=== PATIENT | female | born 1975 | race Caucasian/White ===

== ENCOUNTER 2020-03-07 08:57 | Outpatient (CLI) | payer OTHER, SELFPAY ==
--- NOTE | 2020-03-07 08:59 | ECG_ITS ---
Measurements Intervals [place] Rate: 80 P: 37 AL: 149 QRS: -1 QRSD: 85 T: 22 QT: 356 QTc: 411 Interpretive Statements SINUS RHYTHM DELAYED PRECORDIAL R/S TRANSITION BORDERLINE ECG Electronically Signed On 03-07-2020 9:35:12 CDT by Billy Tesfaye D.O.
[2020-03-07 09:32] LABS: Basophils Percent Auto 0.6 % (0.2-1.2); Eosinophils Absolute Auto 0.2 K/mm3 (0-0.3); Eosinophils Percent Auto 2.4 % (0-4.4); Hematocrit 41.4 % (37.0-47.0); Immature Granulocyte Absolute 0.02 K/mm3 (0.00-0.031); Immature Granulocyte Percent A 0.3 % (0-0.5); Lymphocytes Absolute Auto 1.79 K/mm3 (0.9-3.2); Lymphocytes Percent Auto 28.8 % (18.3-44.2); Mean Corpuscular HGB Conc 33.8 g/dl (32-36); Mean Corpuscular Hemoglobin 30.8 pg (26-34); Mean Platelet Volume 10.1 fl (7.4-10.4); Monocytes Absolute Auto 0.4 K/mm3 (0.1-0.6); Monocytes Percent Auto 7.1 % (2.6-8.5); Neutrophils Absolute Auto 3.8 K/mm3 (1.3-6.7); Neutrophils Percent Auto 60.8 % (45.5-73.1); Platelet Count Result 310 k/mm3 (150-375); Red Blood Count 4.55 M/mm3 (4.2-5.4); Red Cell Distribution Width 12.5 % (11.5-14.5); White Blood Count 6.2 K/mm3 (4.5-10.0)
[2020-03-07 09:44] LABS: Anion Gap 6 mmol/L (8-16); Blood Urea Nitrogen 12 mg/dL (7-17); Calcium 9.1 mg/dL (8.4-10.2); Carbon Dioxide 30 mmol/L (22-30); Chloride 103 mmol/L (98-107); Estimated Glomerular Filt Rate > 60; Glucose 148 mg/dL (65-105); Potassium 3.8 mmol/L (3.4-5.0); Sodium 139 mmol/L (137-145)
== END 2020-03-07 08:58 | disposition home or self-care (01) ==
PROVIDERS: Anesthesiology; PCP Family Medicine; Visit Provider Obstetrics & Gynecology
DX: R10.2 Pelvic and perineal pain (principal); I10 Essential (primary) hypertension; Z79.899 Other long term (current) drug therapy; R94.31 Abnormal electrocardiogram [ECG] [EKG]
CPT/HCPCS: 36415; 80048; 85025; 86850; 86900; 86901; 93005

== ENCOUNTER 2020-03-09 03:23 | Outpatient (CLI) | payer OTHER, SELFPAY ==
[2020-03-09 19:05] LABS: SARS-CoV-2 RNA PCR Negative
== END 2020-03-09 03:24 | disposition home or self-care (01) ==
LOC: ANHCOVIDDT 03:24
PROVIDERS: PCP Family Medicine; Visit Provider Obstetrics & Gynecology
DX: Z01.812 Encounter for preprocedural laboratory examination (principal); Z20.828 Contact with and (suspected) exposure to other viral communicable diseases
CPT/HCPCS: 87635; C9803; U0003

== ENCOUNTER 2020-03-11 00:08 | Day surgery (SDC) | payer OTHER, SELFPAY ==
[2020-02-26 15:53] VITALS: BMI 41.5
--- NOTE | 2020-03-09 07:43 | PM.IMHP ---
H&P: HPI History of Present Illness Date/Time: 03/09/20 07:43 Chief complaint: Pelvic Pain/ Enlarged Uterus Narrative: Eliza Amador is a 44 year old female who was admitted for robotic total vaginal hysterectomy and bilateral salpingectomies. She has a markedly enlarged uterus confirmed by ultrasound. She has pain discomfort and dyspareunia. Risks and benefits of this procedure reviewed including but not exclusive , aspiration pneumonia, bleeding, transfusion, perforation injury to bowel, bladder, ureters, or other internal organs with need for laparotomy she was given the handout from [facility] entitled hysterectomy and instructed to watch a div in she procedure. She had all questions answered. She asked to proceed Review of Systems Review of Systems: All systems reviewed & are unremarkable except as noted in HPI and below PMFSH Family History Family History Father Hypertension Grandparent Cerebrovascular accident Family history of coronary artery disease Diabetes mellitus Social History Social History Smoking status: Never smoker Alcohol intake: current Drinks per week: 4 Meds Home Medications and Allergies Home Medications Medication Instructions Recorded Confirmed Type buspirone 5 mg PO TID 02/26/20 02/26/20 History cetirizine [Zyrtec] 10 mg PO DAILY 02/26/20 02/26/20 History ibuprofen 600 mg PO Q6H PRN 02/26/20 02/26/20 History lisinopril 20 mg PO QPM 02/26/20 02/26/20 History spironolactone 100 mg PO DAILY 02/26/20 02/26/20 History Allergies Allergy/AdvReac Type Severity Reaction Status Date / Time No Known Allergies Allergy Verified 02/26/20 15:54 Exam Const: General: no acute distress Eyes: General: appearance normal, both eyes and all related structures Neck: Neck: supple and no JVD Thyroid: thyroid normal Resp: Effort & Inspection: normal respiratory effort Auscultation: clear to auscultation bilaterally Cardio: Rate: regular rate Rhythm: regular rhythm GI: Inspection: non-distended GI Palp: Yes Soft to palpation, No Tenderness to palpation present (GI) and No Guarding due to palpation present (GI) Auscultation: normal bowel sounds : General: Yes bladder normal to inspection External Female Exam: normal external appearance Speculum Exam - Vagina: normal vaginal discharge Speculum Exam - Cervix: Cervical os closed Bimanual exam- vagina & uterus: enlarged Bimanual Exam- Adnexa, other: no masses Skin: General skin exam: no rashes or lesions noted Extrem: General: normal to inspection and no edema Psych: Mental Status: mental status grossly normal Affect: normal affect Assessment and Plan Additional Plan impression: Enlarged uterus /pelvic pain / dyspareunia Plan: Robotic total vaginal hysterectomy and bilateral salpingectomies
[2020-03-11] VITALS (16 sets, daily range): BP systolic 112–147; BP diastolic 60–85; PULSE 72–94; RESP 12–18; TEMP 35.9–37; O2SAT 94–100
--- NOTE | 2020-03-11 06:36 | WPDHPUPDATE1 ---
History and Physical Update Update Date/Time: 03/11/20 06:36 History and Physical has been reviewed, including an updated exam of the patient. There are NO changes in the patient's condition. Risks, benefits, and alternatives have been discussed and questions answered. Patient agrees to proceed with procedure.
--- NOTE | 2020-03-11 06:42 | WPDANESEPPF ---
Anes - Initial Pre Proc Eval Procedure: Operation Date: 03/11/20 07:30 Proposed Procedures p Robotic Assisted Total Vaginal Hysterectomy, Bilateral Salpingectomy - Rj Rausch MD Date/Time: 03/11/20 06:42 Surgeon: Rj Rausch MD Pre Op Diagnosis: Pelvic Pain/ Enlarged Uterus Patient Data Age: 44 Gender: F Height: 5 ft 5 in Weight: 113.4 kg Allergies Allergy/AdvReac Type Severity Reaction Status Date / Time No Known Allergies Allergy Verified 02/26/20 15:54 Home Medications Medication Instructions Recorded Confirmed Type buspirone 5 mg PO TID 02/26/20 02/26/20 History cetirizine [Zyrtec] 10 mg PO DAILY 02/26/20 02/26/20 History ibuprofen 600 mg PO Q6H PRN 02/26/20 02/26/20 History lisinopril 20 mg PO QPM 02/26/20 02/26/20 History spironolactone 100 mg PO DAILY 02/26/20 02/26/20 History hydrocodone-acetaminophen 1 tablet PO Q6H PRN #30 tablet 03/11/20 Rx Patient hx anesthesia problems: none Family hx anesthesia problems: none PMFSH Past Medical History Medical History (Updated 03/11/20 @ 06:42 by Rj Rivas MD) Anxiety HTN (hypertension) Morbid obesity Surgical History Surgical History (Updated 03/11/20 @ 06:43 by Rj Rivas MD) H/O laparoscopy Family History Family History Father Hypertension Grandparent Cerebrovascular accident Family history of coronary artery disease Diabetes mellitus Social History Social History Smoking status: Never smoker Alcohol intake: current Drinks per week: 4 Anes - Eval Final PreProcedure Day of Procedure 03/11/20 06:42 Patient weight: morbidly obese Heart: regular rate and rhythm Lungs: clear to auscultation Airway: Mallampati scale class II Neurological: alert and oriented Last oral intake: >/= 8 hours ASA classification: III Emergent: no Anesthetic plan: proceed Anesthesia type and monitoring: general ETT and standard monitoring Informed Consent: The patient's anesthetic plan and its attendant risks and benefits were discussed with the patient/family/POA. Questions were solicited and answers provided to the satisfaction of the patient/family/POA.
[2020-03-11] MEDS: LACTATED RINGERS 1,000 ML 30 ML IV CONT ×2 (07:02→08:55)
[2020-03-11] MEDS: KETOROLAC 15 MG/ML VIAL (*BKC) IV PUSH (07:03)
[2020-03-11] MEDS: ACETAMINOPHEN 500 MG TABLET 1000 MG PO (07:03)
--- NOTE | 2020-03-11 08:51 | PM.PROC ---
Procedure Note - Detailed Date of procedure: 03/11/20 Pre-op diagnosis: Pelvic Pain/ Enlarged Uterus Surgeon: Rj Rausch MD Postop diagnosis: Pelvic pain /enlarged uterus Procedure: Robotic total vaginal hysterectomy and left salpingectomy Anesthesia: General endotracheal EBL: 100cc Complications: None Findings: Absent right ovary and tube. Mildly enlarged uterus. Normal-appearing left ovary. Left tube status post tubal ligation. Adhesions from the colon to the left lateral sidewall Description of procedure: Patient was prepped and draped in the normal sterile fashion placed in the dorsal lithotomy position. Under excellent general endotracheal anesthesia weighted speculum was placed in the posterior fornix vagina. Anterior lip of the uterus was sent grasped with a single-tooth tenaculum and the uterus sounded to 8cm. Serial dilatation with fragmented dilators performed followed by passage of the 6. DARWIN and the 3. Cold cup. Next the 16 [place] catheter was placed in the bladder drained of clear urine. The weighted speculum and other instruments removed. The gloves were changed. A supraumbilical incision made the Veress needle passed in the abdomen. The abdomen was filled with CO2 gas [id number]. The 8mm trocar was advanced in the abdomen. The downside was visualized and no injury seen. The patient placed in Trendelenburg and right and left lateral quadrant incisions made. The 8mm trocars were advanced under direct visualization assuring no injury. A right upper quadrant incision made in the 10mm trocar advanced under direct visualization assuring injury. The robot was docked Attention was turned to the investment counselor. The left lateral sidewall was stuck with adhesions from the omentum and the colon to the left lateral sidewall. These were sharply dissected using occasional cautery for control of blood loss. The left fallopian tube was then teased away from the left ovary and passed off with through the right upper quadrant incision. The ovary appeared within normal limits with a small cyst which was drained of clear fluid. The left utero-ovarian ligament was grasped, burned, cut and brought to the round ligament. The round ligament on the left was clamped, burned, cut. Anteriorly a bladder flap was formed by sharply dissected caudally from the uterus to the opposite round ligament which was clamped, burned, cut. Next the utero-ovarian ligament on the right was clamped, burned, cut and brought to the level of previous cut round ligament. The left cardinal and broad ligaments were skeletonized these were serially clamped, burned, cut and brought down the lateral edge of the uterus until the blood vessels could be seen on the left these were large and tortuous in each was individually clamped, burned, cut. In like fashion the cardinal and broad ligaments on the right were serially skeletonized. These were clamped, burned, cut and brought to the level of the uterine vessels. These were individually clamped, burned, cut. Blanching the uterus was seen and control of blood loss was present. A colpotomy incision was made in the cervix uterus and lap last portion of the fallopian tube on the left was removed. Blood loss was estimated at [id number]. The vagina was closed with continuous running 0V lock from lateral edge to lateral edge and back to the midline. Irrigation was undertaken until clear. Hematuria was placed over the raw surface areas to assure hemostasis. The robot was undocked. The gas removed from the abdomen. The trocars removed from the abdomen. The incisions closed with 4 O Monocryl and glue. The patient was awakened. She went to recovery in satisfactory condition. All sponge, needle, instrument counts were correct. There were no immediate complications
[2020-03-11] MEDS: fentaNYL CITRATE INJ (*CRX) 100 MCG/2 ML VIAL 25 MCG IV PUSH ×8 (09:24→09:44)
[2020-03-11] MEDS: DEXTROSE 5%/LACTATED RINGERS 1,000 ML 125 ML IV CONT (10:13)
--- NOTE | 2020-03-11 10:13 | PC.NURSE ---
PT arrived on unit via bed unaccompanied . PT alert and awake and oriented to room 289 and surrounding area. PT introductions made and plan of care discussed per post op house player surgery, pain management, daily care activities. PT verbalized understanding of such instructions.
[2020-03-11] MEDS: HYDROcodone/acetaminophen (*CRX) 10-325 MG TABLET 1 TAB PO ×5 (11:07→23:06)
[2020-03-11] MEDS: KETOROLAC 30 MG/ML VIAL (*BKC) IV PUSH (11:09)
[2020-03-11] MEDS: SIMETHICONE 80 MG TAB.CHEW PO ×4 (11:11→20:01)
[2020-03-11] MEDS: IBUPROFEN 600 MG TABLET PO ×2 (17:16→23:06)
[2020-03-11] MEDS: DOCUSATE SODIUM 100 MG CAPSULE PO (17:16)
[2020-03-12] MEDS: HYDROcodone/acetaminophen (*CRX) 10-325 MG TABLET 1 TAB PO ×2 (05:33→10:17)
[2020-03-12] MEDS: IBUPROFEN 600 MG TABLET PO (05:34)
[2020-03-12 06:17] LABS: Basophils Percent Auto 0.2 % (0.2-1.2); Eosinophils Absolute Auto 0.1 K/mm3 (0-0.3); Eosinophils Percent Auto 0.4 % (0-4.4); Hematocrit 39.3 % (37.0-47.0); Immature Granulocyte Absolute 0.07 K/mm3 (0.00-0.031); Immature Granulocyte Percent A 0.6 % (0-0.5); Lymphocytes Percent Auto 16.4 % (18.3-44.2); Mean Corpuscular HGB Conc 33.1 g/dl (32-36); Mean Corpuscular Volume 93.8 fl (80-100); Monocytes Absolute Auto 0.8 K/mm3 (0.1-0.6); Monocytes Percent Auto 6.5 % (2.6-8.5); Neutrophils Absolute Auto 8.8 K/mm3 (1.3-6.7); Neutrophils Percent Auto 75.9 % (45.5-73.1); Platelet Count Result 320 k/mm3 (150-375); Red Blood Count 4.19 M/mm3 (4.2-5.4); Red Cell Distribution Width 12.6 % (11.5-14.5); White Blood Count 11.6 K/mm3 (4.5-10.0)
--- NOTE | 2020-03-12 06:34 | P.DS_ITS ---
DS: Admitting Diagnosis Admitting Diagnosis Admitting Diagnosis: Pelvic Pain/ Enlarged Uterus DS: Summary Hospital Course Reason for hospitalization: The patient was admitted for robotic hysterectomy and bilateral salpingectomy. The right ovary and tube were absent so the left tube was removed. Hospital course was unremarkable. She remained afebrile. She was, voiding the difficulty passing gas, eating and ambulating without difficulty. Her condition upon discharge was stable Time Spent with Patient Time attestation: Total time spent providing and/or coordinating discharge services: Exam Const: General: no acute distress Eyes: General: appearance normal, both eyes and all related structures Neck: Neck: supple and no JVD Thyroid: thyroid normal Resp: Effort & Inspection: normal respiratory effort Auscultation: clear to auscultation bilaterally Cardio: Rate: regular rate Rhythm: regular rhythm GI: Inspection: non-distended GI Palp: Yes Soft to palpation, No Tenderness to palpation present (GI) and No Guarding due to palpation present (GI) Auscultation: normal bowel sounds : General: Yes bladder normal to palpation External Female Exam: normal external appearance Speculum Exam - Vagina: normal vaginal discharge and No vaginal bleeding Speculum Exam - Cervix: nontender Bimanual exam- vagina & uterus: bladder normal to palpation and No Cervical tenderness present OB/external & speculum: No vaginal bleeding Skin: General skin exam: no rashes or lesions noted Extrem: General: normal to inspection and no edema Psych: Mental Status: mental status grossly normal Affect: normal affect DS: Data Data Completed and Pending Pending studies at discharge: Pending at discharge 03/11/20 08:10 Surgical [PTH] Routine Labs on day of discharge: Labs from last 24 hours 03/12/20 05:42 WBC 11.6 H RBC 4.19 L Hgb 13.0 Hct 39.3 MCV 93.8 MCH 31.0 MCHC 33.1 RDW 12.6 Plt Count 320 MPV 10.0 Immature Gran % (Auto) 0.6 H Neut % (Auto) 75.9 H Lymph % (Auto) 16.4 L [place] % (Auto) 6.5 Eos % (Auto) 0.4 Baso % (Auto) 0.2 Lymph # (Auto) 1.90 [place] # (Auto) 0.8 H Eos # (Auto) 0.1 Baso # (Auto) 0.0 Abs Immat Gran (auto) 0.07 H Absolute Neuts (auto) 8.8 H Absolute Nucleated RBC 0.0 Nucleated RBC % 0.0 Discharge Plan Discharge Patient Disposition: Home, Self-Care Stand Alone Forms: General Discharge Instructions Follow-up/Referrals: Rj Rausch MD [Physician] - Discharge Medications: New hydrocodone-acetaminophen 5-300 mg tablet 1 tablet PO Q6H PRN (Reason: pain) Qty: 30 RF: 0 Continued buspirone 5 mg tablet 5 mg PO TID RF: 0 cetirizine [Zyrtec] 10 mg Tablet 10 mg PO DAILY RF: 0 lisinopril 20 mg tablet 20 mg PO QPM RF: 0 spironolactone 100 mg tablet 100 mg PO DAILY RF: 0 ibuprofen 600 mg Tablet 600 mg PO Q6H PRN (Reason: Pain) RF: 0
--- NOTE | 2020-03-12 08:43 | WPDANESPN ---
Anes - Prog Note Post-Op Date/Time: 03/12/20 08:43 Cardiovascular status: normal Respiratory status: normal Airway patency: baseline Mental status: baseline Post-Op hydration status: normal Vital Signs: Last Vital Signs Temp 36.7 C 03/11/20 23:05 Pulse 74 03/11/20 23:05 Resp 16 03/11/20 23:05 BP 112/64 03/11/20 23:05 Pulse Ox 100 03/11/20 23:05 Pain Score (VAS): 05/29 I/O: Intake & Output 03/11/20 03/12/20 03/12/20 23:59 07:59 15:59 Intake Total 1900 200 Output Total 1450 650 Balance 450 -450 Laboratory Tests 03/12/20 05:42 03/12/20 05:42 WBC 11.6 H RBC 4.19 L Hgb 13.0 Hct 39.3 MCV 93.8 MCH 31.0 MCHC 33.1 RDW 12.6 Plt Count 320 MPV 10.0 Immature Gran % (Auto) 0.6 H Neut % (Auto) 75.9 H Lymph % (Auto) 16.4 L [place] % (Auto) 6.5 Eos % (Auto) 0.4 Baso % (Auto) 0.2 Lymph # (Auto) 1.90 [place] # (Auto) 0.8 H Eos # (Auto) 0.1 Baso # (Auto) 0.0 Abs Immat Gran (auto) 0.07 H Absolute Neuts (auto) 8.8 H Absolute Nucleated RBC 0.0 Nucleated RBC % 0.0 Post-procedural complaints: none Patient Feedback: Patient satisfied with anesthetic care.
[2020-03-12 09:30] VITALS: BP 108/60; PULSE 78; RESP 14; TEMP 36.6; O2SAT 99
[2020-03-12] MEDS: DOCUSATE SODIUM 100 MG CAPSULE PO (10:09)
[2020-03-12] MEDS: ENOXAPARIN 40 MG/0.4 ML SYRINGE SUB-Q (10:09)
[2020-03-12] MEDS: SIMETHICONE 80 MG TAB.CHEW PO (10:09)
== END 2020-03-12 10:22 | disposition home or self-care (01) ==
LOC: ANHSURGERY 05:55 → ANHOB2 10:15
PROVIDERS: PCP Family Medicine; Visit Provider Obstetrics & Gynecology
PROC: (CPT 58552; principal; 2020-03-11 07:30)
DX: R10.2 Pelvic and perineal pain (principal); N72 Inflammatory disease of cervix uteri; N80.0 Endometriosis of uterus; I10 Essential (primary) hypertension; F41.9 Anxiety disorder, unspecified; E66.01 Morbid (severe) obesity due to excess calories; Z68.41 Body mass index [BMI] 40.0-44.9, adult
CPT/HCPCS: 58552; S2900; 36415; 85025; 88307; 99199; A9270; J0330; J1100; J1650; J1885; J2250; J2405; J2704; J3010; J7030; J7120; J7121

== ENCOUNTER 2021-08-17 11:32 | Outpatient (CLI) | payer OTHER, SELFPAY ==
[2021-08-17 12:20] LABS: Alanine Aminotransferase 109 U/L (4-35); Albumin Level 4.3 g/dL (3.5-5.1); Alkaline Phosphatase 95 U/L (38-126); Anion Gap 9 mmol/L (8-16); Aspartate Amino Transferase 68 U/L (14-36); Bilirubin,Total 0.6 mg/dL (0.2-1.3); Blood Urea Nitrogen 10 mg/dL (7-17); Calcium 8.9 mg/dL (8.4-10.2); Carbon Dioxide 26 mmol/L (22-30); Chloride 101 mmol/L (98-107); Cholesterol 209 mg/dL (0-200); Estimated Glomerular Filt Rate > 60; Glucose 165 mg/dL (65-110); HDL Direct 39 mg/dL; Sodium 136 mmol/L (137-145); Triglycerides 158 mg/dL (<150)
[2021-08-17 12:31] LABS: LDL Cholesterol Direct 133 mg/dL
[2021-08-17 12:42] LABS: Free T4 Free Thyroxine 1.19 ng/mL (0.78-2.19)
== END 2021-08-17 11:33 | disposition home or self-care (01) ==
LOC: ANHLAB 11:35
PROVIDERS: PCP Family Medicine; Visit Provider Family Medicine
DX: R63.5 Abnormal weight gain (principal)
CPT/HCPCS: 36415; 80053; 80061; 84439; 84443

== ENCOUNTER 2021-10-25 12:47 | Emergency (ER) | payer OTHER, SELFPAY ==
--- NOTE | 2021-10-25 12:52 | ED.URI ---
HPI - URI/Sore Throat General Chief Complaint: Upper Respiratory Infection Stated Complaint: sinus pain Time Seen by Provider: 10/25/21 12:52 Source: patient Mode of arrival: ambulatory Limitations: no limitations History of Present Illness HPI Narrative: Ms. Amador is a 46-year-old female patient presenting to the clinic today with complaints of sinus pressure and congestion since October 02. She reports that she went to [employer] and soon after she was there she became sick with sinus pressure and nasal drainage. She reports that she took some [id number] Sudafed and Tylenol/Motrin and her symptoms improved however now her symptoms of come back with a vengeance. She denies any fever or chills but has sinus pressure over her right maxillary sinus and around her right eye. Related Data Home Medications Medication Instructions Recorded Confirmed buspirone 5 mg tablet 5 mg PO TID 02/26/20 03/11/20 cetirizine 10 mg tablet (Zyrtec) 10 mg PO DAILY 02/26/20 03/11/20 ibuprofen 600 mg tablet 600 mg PO Q6H PRN Pain 02/26/20 03/11/20 lisinopril 20 mg tablet 20 mg PO QPM 02/26/20 03/11/20 spironolactone 100 mg tablet 100 mg PO DAILY 02/26/20 03/11/20 Allergies Allergy/AdvReac Type Severity Reaction Status Date / Time No Known Allergies Allergy Verified 03/11/20 07:19 Review of Systems Review of Systems: Pertinent positives per HPI. Patient denies any fever, chills, rash, headache, visual changes, dizziness, cough, runny nose, sore throat, shortness of breath, chest pain, palpitations, nausea, vomiting, diarrhea, constipation, abdominal pain, or any urinary issues. [facility] Past Medical History Medical History Anxiety HTN (hypertension) Morbid obesity Surgical History Surgical History H/O laparoscopy Family History Family History Father Hypertension Grandparent Cerebrovascular accident Family history of coronary artery disease Diabetes mellitus Social History Social History Smoking status: Never smoker Alcohol intake: current Drinks per week: 4 Comments At the time of my signature, I reviewed and agree with the nursing past medical, surgical, social, and family history. There is no relevant family history pertinent to the patient complaint. Exam Narrative: General: Well-developed, well nourished, in no apparent distress Head: Normocephalic, atraumatic Eyes: Pupils equally round and reactive to light bilaterally, EOM intact, sclera and conjunctive clear, no discharge, lids normal Ears: TMs intact and clear, ear canals clear, no drainage, grossly hearing normal. Nose: Nares patent, clear nasal discharge, no inflammation, tenderness over the right maxillary sinuses and right frontal sinuses Mouth: Oropharynx without lesions or masses, good dentition, MMM. Neck: Supple, trachea midline, no enlargement of anterior or posterior cervical nodes, no thyroid masses or goiter palpable. Cardio: Regular rate and rhythm, s1 and s2 normal, no murmur appreciated. Resp: Clear to auscultation bilaterally anteriorly and posteriorly, no rhonchi, rales, wheezing or rubs Course Course Emergency Course: Portions of this record may have been created with voice recognition software. Level of Care: Express Care Visit Vital Signs Vital signs: Vital signs reviewed MDM - URI/Sore Throat MDM Narrative Medical decision making narrative: At the time of visit patient is resting comfortably on the exam table. I will treat the patient with acute rhinosinusitis and give her a prescription for some Augmentin. Supportive measures were discussed with the patient she voiced understanding of discharge instructions. Differential Diagnosis Differential diagnosis: Likely upper
[2021-10-25 12:57] VITALS: BP 159/92; PULSE 95; RESP 16; TEMP 36.1; O2SAT 100
== END 2021-10-25 13:07 | disposition home or self-care (01) ==
PROVIDERS: Emergency Provider Nurse Practitioner Family; PCP Family Medicine
DX: J01.00 Acute maxillary sinusitis, unspecified (principal); F41.9 Anxiety disorder, unspecified; I10 Essential (primary) hypertension; E66.01 Morbid (severe) obesity due to excess calories; Z68.41 Body mass index [BMI] 40.0-44.9, adult
CPT/HCPCS: 99213; G0463

== ENCOUNTER 2021-10-30 13:15 | Emergency (ER) | payer OTHER, SELFPAY ==
--- NOTE | ~2021-10-30 | XR_ITS ---
XR ankle LT min 3V DATE: 10/30/2021 14:33 INDICATION: Twisting injury, lateral ankle pain TECHNIQUE: 4 views COMPARISON: None FINDINGS: Prominent posterior and plantar calcaneal enthesopathy. No fracture or dislocation of the ankle or disruption of the ankle mortise. No periosteal reaction or bone destruction. IMPRESSION: Plantar and posterior calcaneal enthesopathy Reviewed, dictated and finalized at location A.
--- NOTE | ~2021-10-30 | XR_ITS ---
XR foot LT min 3V DATE: 10/30/2021 14:33 INDICATION: Lateral foot pain after twisting injury today TECHNIQUE: 4 views COMPARISON: None FINDINGS: Prominent plantar and posterior calcaneal enthesopathy without erosive change or periostiti s. Mild osteoarthritis at the first metatarsophalangeal joint. No fracture, dislocation, periosteal reaction or bone destruction. IMPRESSION: No fracture or dislocation Prominent plantar and posterior calcaneal enthesopathy Reviewed, dictated and finalized at location A.
[2021-10-30 13:25] VITALS: BP 156/108; PULSE 100; RESP 16; TEMP 35.9; O2SAT 100
--- NOTE | 2021-10-30 14:05 | ED.LOWEXIN ---
HPI - Extremity Injury (Lower) General Chief Complaint: Extremity Injury, Lower Stated Complaint: L FOOT PAIN Time Seen by Provider: 10/30/21 14:06 History of Present Illness HPI Narrative: The patient is here with complaints of injury to the left ankle after she twisted it while walking. She states that she was wearing regular Crocs. Since then she has been bearing weight but it is painful. She localizes pain to the outside of the lateral foot and the ankle area. Denies any associated numbness or tingling. Denies any other injuries. Patient states that she has had an old injury to the right this fracture of tibia and fibula and needed open reduction andinternal fixation. Related Data Home Medications Medication Instructions Recorded Confirmed buspirone 5 mg tablet 5 mg PO TID 02/26/20 10/30/21 lisinopril 20 mg tablet 20 mg PO QPM 02/26/20 10/30/21 spironolactone 100 mg tablet 100 mg PO DAILY 02/26/20 10/30/21 phentermine 37.5 mg tablet 1 tablet DAILY 10/25/21 10/30/21 Allergies Allergy/AdvReac Type Severity Reaction Status Date / Time No Known Allergies Allergy Verified 10/30/21 13:33 Review of Systems Review of Systems: All systems reviewed & are unremarkable except as noted in HPI and below PMFSH Past Medical History Medical History (Updated 10/30/21 @ 14:55 by Tawnya Spangler MD) Anxiety Fracture of right tibia and fibula HTN (hypertension) Morbid obesity Surgical History Surgical History H/O laparoscopy Family History Family History Father Hypertension Grandparent Cerebrovascular accident Family history of coronary artery disease Diabetes mellitus Social History Social History Smoking status: Never smoker Alcohol intake: current Drinks per week: 4 Exam Const: General: healthy appearing, no acute distress and alert Nutritional Appearance: well nourished Limitations: no limitations HENMT: Head: normal to inspection Eyes: Pupils: Equal, round and reactive pupils present EOM: EOMs intact bilaterally Resp: Effort & Inspection: normal respiratory effort Auscultation: clear to auscultation bilaterally Cardio: Rate: regular rate Rhythm: regular rhythm Skin: General skin exam: normal color Rashes: no rashes Wounds: no wounds Neuro: General: patient oriented x3 and moves all extremities Speech: normal speech Gait exam (Neuro): Normal gait present (Favouring left foot ) Extrem: General: normal to inspection Other: Left Foot Appears normal in contour and shape. There is no obvious deformity. There is no external bruising or discoloration. There are no open wounds. There is tenderness at the base of the lateral malleolar area into the proximal foot. There is also tenderness at the base of the 5th metatarsal. No crepitus or swelling is noted. The range of motion at the ankle is slightly tender. The distal neurovascular status of the left foot is normal. The rest of the extremity appears to be unremarkable. Course Course Emergency Course: The ankle and foot x-ray have been reported as negative for any fracture. There is some enthesopathy noted to the calcaneal area per radiology report. The patient is aware. an ankle gel splint and Diomedes wrap will be applied. Patient does not want anything for pain medication at this time. She has no restrictions on weight-bearing however she is advised to elevate and ice the ankle today. Vital Signs Vital signs: Vital Signs Temperature 35.9 C L 10/30/21 13:25 Pulse Rate 100 10/30/21 13:25 Respiratory Rate 16 10/30/21 13:25 Blood Pressure 156/108 H 10/30/21 13:25 Pulse Oximetry 100 10/30/21 13:25 Oxygen Delivery Room Air 10/30/21 13:25 Temperature 35.9 C L 10/30/21 13:25 Pulse Rate 100 10/30/21 13:25 Respiratory Rate 16 10/30/21 13:
[2021-10-30 15:15] VITALS: BP 141/91; PULSE 91; RESP 18; O2SAT 100
== END 2021-10-30 15:15 | disposition home or self-care (01) ==
PROVIDERS: Emergency Provider Emergency Medicine; PCP Family Medicine
DX: S93.402A Sprain of unspecified ligament of left ankle, initial encounter (principal)
CPT/HCPCS: 73610; 73630; 99283; L4350

== ENCOUNTER 2022-04-04 06:00 | Day surgery (SDC) | payer OTHER, SELFPAY ==
[2022-03-01 12:21] VITALS: BMI 38.3
[2022-03-20 10:05] VITALS: BMI 36.6
[2022-04-04 06:30] VITALS: BP 138/106; PULSE 90; RESP 20; TEMP 36.3; O2SAT 100
--- NOTE | 2022-04-04 06:55 | WPDANESEPPF ---
Anes - Initial Pre Proc Eval Procedure: Operation Date: 04/04/22 07:30 Proposed Procedures p Excision Ganglion Cyst/Soft Tissue Mass 2nd Digit-Right Foot - Dahiana Swanson DPM Date/Time: 04/04/22 06:55 Surgeon: Dahiana Swanson DPM Pre Op Diagnosis: Ganglion Cyst/Soft Tissue Mass 2nd Digit RT Foot Patient Data Age: 47 Gender: F Height: 1.65 m Weight: 102.6 kg Allergies Allergy/AdvReac Type Severity Reaction Status Date / Time No Known Allergies Allergy Verified 04/04/22 06:32 Home Medications Medication Instructions Recorded Confirmed Type buspirone 5 mg tablet 5 mg PO TID 02/26/20 04/04/22 History spironolactone 100 mg tablet 100 mg PO DAILY 02/26/20 04/04/22 History phentermine 37.5 mg tablet 1 tablet DAILY 10/25/21 04/04/22 History Patient hx anesthesia problems: none Family hx anesthesia problems: none Results Review: All pre-operative results and documents have been reviewed as part of the pre-operative evaluation. [facility] Past Medical History Medical History (Updated 10/31/21 @ 00:00 by Dorys Linares) Anxiety Fracture of right tibia and fibula HTN (hypertension) Morbid obesity Surgical History Surgical History H/O laparoscopy Family History Family History Father Hypertension Grandparent Cerebrovascular accident Family history of coronary artery disease Diabetes mellitus Social History Social History Smoking status: Never smoker Second hand tobacco smoke exposure: No Alcohol intake: current Drinks per week: 4 Alcohol use details: socially Substance use: never Substance use type: does not use Living arrangements: with family Spiritual care concerns: No Anes - Eval Final PreProcedure Day of Procedure 04/04/22 06:55 Patient weight: obese Heart: regular rate and rhythm Lungs: clear to auscultation Airway: Mallampati scale class III Neurological: alert and oriented Last oral intake: >/= 8 hours ASA classification: II Emergent: no Anesthetic plan: proceed Anesthesia type and monitoring: general GIVS and standard monitoring Results Review: All pre-operative results and documents have been reviewed as part of the pre-operative evaluation. Informed Consent: The patient's anesthetic plan and its attendant risks and benefits were discussed with the patient/family/POA. Questions were solicited and answers provided to the satisfaction of the patient/family/POA.
--- NOTE | 2022-04-04 07:19 | WPDHPUPDATE1 ---
History and Physical Update Update Date/Time: 04/04/22 07:19 History and Physical has been reviewed, including an updated exam of the patient. There are NO changes in the patient's condition. Risks, benefits, and alternatives have been discussed and questions answered. Patient agrees to proceed with procedure.
--- NOTE | 2022-04-04 07:20 | PM.IMHP ---
H&P: HPI History of Present Illness Date/Time: 04/04/22 07:20 Chief Complaint: Painful soft tissue mass right 2nd digit. Patient has tried aspiration of the cyst with no improvement. Review of Systems Review of Systems: All systems reviewed & are unremarkable except as noted in HPI and below Constitutional: Constitutional: Reports as per HPI Eyes: Eyes: Reports as per HPI Cardiovascular: Cardiovascular: Reports as per HPI Respiratory: Respiratory: Reports as per HPI Gastrointestinal: Gastrointestinal: Reports as per HPI Musculoskeletal: Comments: Pain on palpation of right 2nd digit. Neurologic: Reports system reviewed and no additional complaints, except as documented [facility] Past Medical History Medical History Anxiety Fracture of right tibia and fibula HTN (hypertension) Morbid obesity Surgical History Surgical History H/O laparoscopy Family History Family History Father Hypertension Grandparent Cerebrovascular accident Family history of coronary artery disease Diabetes mellitus Social History Social History Smoking status: Never smoker Second hand tobacco smoke exposure: No Alcohol intake: current Drinks per week: 4 Alcohol use details: socially Substance use: never Substance use type: does not use Living arrangements: with family Spiritual care concerns: No Meds Home Medications and Allergies Home Medications Medication Instructions Recorded Confirmed Type buspirone 5 mg tablet 5 mg PO TID 02/26/20 04/04/22 History spironolactone 100 mg tablet 100 mg PO DAILY 02/26/20 04/04/22 History phentermine 37.5 mg tablet 1 tablet DAILY 10/25/21 04/04/22 History Allergies Allergy/AdvReac Type Severity Reaction Status Date / Time No Known Allergies Allergy Verified 04/04/22 06:32 Exam Const: General: comfortable and no acute distress HENMT: Face/Nose/Sinus: Normal nares present Mouth: Yes moist mucous membranes Eyes: General: appearance normal, both eyes and all related structures Neck: Neck: supple Resp: Effort & Inspection: normal respiratory effort Cardio: Rate: regular rate Rhythm: regular rhythm GI: GI Palp: Yes Soft to palpation Auscultation: normal bowel sounds Skin: General skin exam: normal color Lesions: lesion noted (mass present on right 2nd digit.) Neuro: General: gait normal Speech: normal speech Motor exam (neuro): 5/5 motor strength present throughout Sensory Exam: normal sensation Extrem: General: normal exam except as noted Assessment and Plan Assessment and plan (1) Mass of soft tissue of right lower extremity: Code(s): M79.89 - Other specified soft tissue disorders Status: Acute Plan 1) Soft tissue mass right 2nd digit. Plan: Discussed risks, benefits and alternate procedures. Patient would like to proceed with surgery as planned. Excision of soft tissue mass right 2nd digit.
[2022-04-04] MEDS: ceFAZolin SODIUM 2 GM/20 ML SW SYRINGE IV PUSH (07:30)
[2022-04-04] MEDS: LACTATED RINGERS 1,000 ML 30 ML IV CONT (07:35)
[2022-04-04] MEDS: LIDOCAINE HCL 1% LOCAL INJ 20 ML VIAL 5 ML INFILTRATE (07:58)
[2022-04-04 08:04] VITALS: BP 146/80; PULSE 89; RESP 16; O2SAT 100
--- NOTE | 2022-04-04 08:04 | W.PM.PROC2 ---
Procedure Note - Detailed Date of Procedure 04/04/22 Pre-op Diagnosis Ganglion Cyst/Soft Tissue Mass 2nd Digit RT Foot Post-op Diagnosis Same Procedure Performed Excision of soft tissue mass right 2nd digit. Surgeon Dahiana Swanson DPM Anesthesia MAC Indications Painful soft tissue mass that has been present for over a year. No improvement with aspiration. Findings Soft tissue mass on right 2nd digit measured approximately 1.0 x 0.4 cm. Description of Procedure Patient brought into the operating room and placed on the table in the supine position. The patient was secured to the table using a safety belt. A well padded pneumatic ankle tourniquet was placed on the patients right ankle. MAC anesthesia was achieved by the anesthesiologist. Next a timeout was performed. A local injection was performed on the right 2nd digit using 10 cc of 1:1 mix of 1% lidocaine plain and 0.5% bupivacaine plain. The foot was scrubbed, prepped and draped using aseptic technique. The foot was exsanguinated using a esmarch bandage and the tourniquet was inflated to 250 mmhg. Next attention was drawn to the right 2nd digit. The mass was present over the dorsolateral aspect of the digit at the level of the DIPJ. A 3:1 converging semi-elliptical incision was made over the soft tissue mass using a #15 blade. The mass was excised in it's entirety. The mass was sent to pathology in formalin for analysis. The area was flushed with copious amounts of normal saline. The incision was closed using layered closure with 4-0 monocryl and 4-0 prolene. The incision was dressed using xeroform, 4x4s, kerlix and [place] wrap. The tourniquet was deflated at this time. The patient was transferred to pacu with vital signs stable and intact perfusion to the digits. The patient tolerated the procedure and anesthesia well. Implants 4-0 monocryl and 4-0 prolene. Estimated Blood Loss 5 Tourniquet Time 12 Pathology Yes (soft tissue mass right foot) Complications No immediate complications Condition Stable Disposition PACU
--- NOTE | 2022-04-04 08:12 | WPDANESPN ---
Anes - Prog Note Post-Op Date/Time: 04/04/22 08:12 Cardiovascular status: normal Respiratory status: normal Airway patency: baseline Mental status: baseline Post-Op hydration status: normal Vital Signs: Last Vital Signs Temp 36.3 C L 04/04/22 06:30 Pulse 90 04/04/22 06:30 Resp 20 04/04/22 06:30 BP 138/106 H 04/04/22 06:30 Pulse Ox 100 04/04/22 06:30 O2 Del Method Room Air 04/04/22 06:30 Pain Score (VAS): 0 Post-procedural complaints: none Patient Feedback: Patient satisfied with anesthetic care. Other Findings: Patient vital signs back to baseline. Patient denies nausea and vomiting. Patient's pain under control. Patient OK for discharge.
[2022-04-04 08:24] VITALS: BP 133/87; PULSE 83; RESP 18; O2SAT 99
== END 2022-04-04 08:53 | disposition home or self-care (01) ==
PROVIDERS: PCP Family Medicine; Visit Provider Student in an Organized Health Care Education/Training Program
PROC: (CPT 28043; principal; 2022-04-04 07:30)
DX: D17.23 Benign lipomatous neoplasm of skin and subcutaneous tissue of right leg (principal)
CPT/HCPCS: 28043

== ENCOUNTER 2022-04-04 08:00 | Outpatient (NON) | payer OTHER, SELFPAY | END 2022-04-04 08:01 | disposition home or self-care (01) | PROVIDERS: PCP Family Medicine; Visit Provider Student in an Organized Health Care Education/Training Program | DX: M79.89 Other specified soft tissue disorders (principal) | CPT/HCPCS: 88304 ==

== ENCOUNTER 2022-07-11 09:45 | Outpatient (CLI) | payer OTHER, SELFPAY ==
--- NOTE | ~2022-07-11 | MM_ITS ---
EXAMINATION: MM screening tata BI w taj HISTORY: Screening mammogram TECHNIQUE: Craniocaudal and mediolateral oblique 3-D tomosynthesis images were obtained and synthetic 2-D images were generated. CAD analysis was submitted and interpreted. COMPARISON: No prior mammogram is available for comparison at this institution. BREAST PARENCHYMAL COMPOSITION: There are scattered areas of fibroglandular density. FINDINGS: There is no evidence of suspicious mass, calcification, or architectural distortion to sugg est malignancy in either breast. There has been no suspicious interval change. IMPRESSION: 1. No mammographic evidence of malignancy. 2. Recommend routine screening mammography in one year. BI-RADS Category 1: Negative Reviewed, dictated and finalized at location A. ER [employer]ACHINE
== END 2022-07-11 09:46 | disposition home or self-care (01) ==
LOC: ANHIMG 09:48
PROVIDERS: PCP Family Medicine; Visit Provider Family Medicine
DX: Z12.31 Encounter for screening mammogram for malignant neoplasm of breast (principal)
CPT/HCPCS: 77063; 77067

== ENCOUNTER 2022-08-10 02:33 | Day surgery (SDC) | payer OTHER, SELFPAY ==
[2022-08-09 14:34] VITALS: BMI 37.5
--- NOTE | 2022-08-09 14:41 | PC.NURSE ---
Report to the Outpatient Waiting Room, entrance under the green pavilion located off [facility], at time 1300 on date 08/10/22. Planned Procedure Time: 1500. Time changes happen often and if your time is changed the preop area will call you the afternoon before. - You and your visitor will be asked to self-screen and do not enter if you have any COVID symptoms. - Only one visitor is requested with a max of two and NO children visitors are allowed at this time. - The patient visitor may be requested to leave or wait in car when not with patient due to distancing restrictions. - A mask is optional within the hospital at this time. Patients may have clear liquids (water, carbonated beverages, clear teas, apple juice) until 3 hours prior to surgery with a maximum of 20 ounces. - No food from midnight until time of surgery Take the following medications with a SIP of water the morning of surgery: BUSPIRONE, XANAX IF NEEDED DO NOT STOP ANY OF YOUR OTHER PRESCRIPTION MEDICATIONS PRIOR TO SURGERY EXCEPT THE FOLLOWING Medications to discontinue per physician: N/A Date to take last dose: N/A Please no make-up, nail welsh, hairspray, perfume, deodorant, or body powder the day of surgery. No jewelry (including any body piercings) or valuables the day of surgery, leave them at home. Please take a shower or bath the night before, or the morning of, surgery with an antibacterial soap. Wear comfortable, loose fitting clothing. - Jewelry must be removed prior to entering the operating room. Rings and piercings that are not removed may be cut off. - The hospital will not accept responsibility for valuables. - Please leave all valuables, including medications, at home the day of surgery. If you are going home after surgery, a licensed services delivery driver must drive you home. - NO public transportation without another adult if you receive anesthesia. - We recommend that an adult stay with you for 24 hours following discharge. - We also recommend that you do not drive, make important decision, drink alcoholic beverages, or take any drugs that were not prescribed by your health care provider for at least 24 hours after your discharge time. Follow any additional instructions given to you from your surgeon. If you or anyone in your household have experienced Covid symptoms in the past week, please notify your surgeon or the nurse liaison at the phone number below for possible testing. Telephone instructions given to UGO - JAZMINE YEE and asked if any additional questions and then verbalized understanding. Patient advised to call surgeon office or pre surgery nurse liaison [phone] if any additional questions.
--- NOTE | 2022-08-10 13:18 | ECG_ITS ---
Measurements Intervals [place] Rate: 85 P: 48 WI: 152 QRS: -9 QRSD: 82 T: 36 QT: 342 QTc: 407 Interpretive Statements SINUS RHYTHM BORDERLINE R WAVE PROGRESSION, ANTERIOR LEADS BORDERLINE ECG COMPARED TO ECG 03/07/2020 09:49:08 NO SIGNIFICANT CHANGES Electronically Signed On 08-10-2022 15:35:06 CDT by Billy Tesfaye D.O.
[2022-08-10 13:37] VITALS: BP 129/86; PULSE 92; RESP 16; TEMP 36.2; O2SAT 99
[2022-08-10 13:56] LABS: Anion Gap 7 mmol/L (8-16); Blood Urea Nitrogen 11 mg/dL (7-17); Calcium 9.4 mg/dL (8.4-10.2); Carbon Dioxide 27 mmol/L (22-30); Chloride 103 mmol/L (98-107); Estimated CRCL calculation 100 ml/min; Estimated Glomerular Filt Rate > 60; Glucose 159 mg/dL (65-110); Sodium 137 mmol/L (137-145)
--- NOTE | 2022-08-10 14:09 | WPDANESEPPF ---
Anes - Initial Pre Proc Eval Procedure: Operation Date: 08/10/22 15:00 Proposed Procedures p Arthroplasty Second Toe Right Foot with K-Wire, Excision of Ganglion Cyst Second Toe Right Foot - Daniele Sherman DPM Date/Time: 08/10/22 14:09 Surgeon: Daniele Sherman DPM Pre Op Diagnosis: ganglion cyst, hammer toe Patient Data Age: 47 Gender: F Height: 1.65 m Weight: 104 kg Last Vital Signs Temp 36.2 C L 08/10/22 13:37 Pulse 92 08/10/22 13:37 Resp 16 08/10/22 13:37 BP 129/86 08/10/22 13:37 Pulse Ox 99 08/10/22 13:37 O2 Del Method Room Air 08/10/22 13:37 Allergies Allergy/AdvReac Type Severity Reaction Status Date / Time No Known Allergies Allergy Verified 08/10/22 13:11 Home Medications Medication Instructions Recorded Confirmed Type buspirone 5 mg tablet 10 mg PO DAILY 02/26/20 08/09/22 History spironolactone 100 mg tablet 100 mg PO DAILY 02/26/20 08/09/22 History alprazolam 0.25 mg tablet 0.25 mg PO TID PRN Anxiety 07/26/22 08/09/22 History losartan 100 mg tablet 100 mg PO DAILY 07/26/22 08/09/22 History phentermine 37.5 mg tablet 37.5 mg PO DAILY 08/09/22 08/09/22 History Laboratory Tests 08/10/22 13:31 Sodium 137 mmol/L mmol/L (137-145) Potassium 4.0 mmol/L mmol/L (3.4-5.0) Chloride 103 mmol/L mmol/L (98-107) Carbon Dioxide 27 mmol/L mmol/L (22-30) Anion Gap 7 mmol/L L mmol/L (8-16) BUN 11 mg/dL mg/dL (7-17) Creatinine 0.70 mg/dL mg/dL (0.7-1.0) Estim Creat Clear Calc 100 ml/min ml/min Estimated GFR > 60 (59 - ) Glucose 159 mg/dL H mg/dL (65-110) Calcium 9.4 mg/dL mg/dL (8.4-10.2) Patient hx anesthesia problems: none Family hx anesthesia problems: none Results Review: All pre-operative results and documents have been reviewed as part of the pre-operative evaluation. [facility] Past Medical History Medical History Anxiety Fracture of right tibia and fibula HTN (hypertension) Morbid obesity Surgical History Surgical History H/O laparoscopy Family History Family History Father Hypertension Grandparent Cerebrovascular accident Family history of coronary artery disease Diabetes mellitus Social History Social History Smoking status: Never smoker Second hand tobacco smoke exposure: No Alcohol intake: current Drinks per week: 7 Alcohol use details: ONE COCKTAIL DAILY Substance use: never Substance use type: does not use Living arrangements: with family Spiritual care concerns: No Anes - Eval Final PreProcedure Day of Procedure 08/10/22 14:09 Patient weight: obese Heart: regular rate and rhythm Lungs: clear to auscultation Airway: Mallampati scale class II Neurological: alert and oriented Last oral intake: >/= 8 hours ASA classification: III Emergent: no Anesthetic plan: proceed Anesthesia type and monitoring: general LMA and standard monitoring Results Review: All pre-operative results and documents have been reviewed as part of the pre-operative evaluation. Informed Consent: The patient's anesthetic plan and its attendant risks and benefits were discussed with the patient/family/POA. Questions were solicited and answers provided to the satisfaction of the patient/family/POA.
--- NOTE | 2022-08-10 14:40 | WPDHPUPDATE1 ---
History and Physical Update Update Date/Time: 08/10/22 14:40 History and Physical has been reviewed, including an updated exam of the patient. There are NO changes in the patient's condition. Risks, benefits, and alternatives have been discussed and questions answered. Patient agrees to proceed with procedure.
[2022-08-10] MEDS: ceFAZolin 2 GM/D5W 50 ML 2 GM/50 ML BAG IVPB (14:48)
--- NOTE | 2022-08-10 15:16 | PM.OP ---
Procedure Note - Brief Procedure Note - Brief Date of procedure: 08/10/22 Pre-op diagnosis: ganglion cyst, hammer toe SAME Procedure performed: EXCISION OF GANGLION CYST 2R ARTHRODESIS 2R Description of procedure: Next two transverse curved converging incisions were made dorsal to the DIPJ of the 2nd digit. The wedge of skin that was removed included the gangion cyst. It was deepened down to the level of the DIPJ. Using sharp and blunt dissection a transverse tenotomy was performed at the joint. The base of the distal phalanx and the head of the middle phalanx were removed. The joint was reduced into proper position. The joint was then fixated in place using 1, .045 inch K-wire. The wounds were then covered with a dry, sterile compressive dressing consisting of Steristrips, antibiotic ointment, Adaptic, 4 x 4?s, Fabiano and Coban. The ankle tourniquet was deflated and prompt capillary refill response noted to all digits of the right foot. Patient tolerated procedure and anesthesia well. He was transferred to the recovery room with vital signs stable and neurovascular status intact to all digits of the right foot. Following a period of post-operative monitoring the patient will be discharged home with written and oral post-operative instructions.. Implants: 0.045 k-wire x 1 Surgeon: Daniele Sherman DPM Pathology: None sent Complications: No immediate complications Condition: Stable
[2022-08-10 15:19] VITALS: BP 118/68; PULSE 90; RESP 12; O2SAT 99
[2022-08-10] MEDS: LACTATED RINGERS 1,000 ML 30 ML IV CONT (15:19)
[2022-08-10] MEDS: LIDOCAINE HCL 1% LOCAL INJ 20 ML VIAL 10 ML INFILTRATE (15:20)
[2022-08-10] MEDS: BUPivacaine HCL 0.5% PF 30 ML VIAL 10 ML INFILTRATE (15:20)
[2022-08-10 15:45] VITALS: BP 104/70; PULSE 88; RESP 16
[2022-08-10 16:00] VITALS: BP 108/67; PULSE 75; RESP 16
== END 2022-08-10 16:05 | disposition home or self-care (01) ==
PROVIDERS: Anesthesiology; PCP Family Medicine; Visit Provider Podiatrist Foot & Ankle Surgery
PROC: (CPT 28285; principal; 2022-08-10 15:00)
DX: M20.41 Other hammer toe(s) (acquired), right foot (principal); M67.471 Ganglion, right ankle and foot; I10 Essential (primary) hypertension; F41.9 Anxiety disorder, unspecified; E66.9 Obesity, unspecified; Z68.38 Body mass index [BMI] 38.0-38.9, adult
CPT/HCPCS: 28285; 36415; 80048; 93005; A9270; C1713; J0690; J1100; J2250; J2405; J2704; J3010; J7120

== ENCOUNTER 2024-04-21 08:38 | Outpatient (CLI) | payer OTHER, SELFPAY ==
[2024-04-21 12:55] LABS: Hemoglobin 15.7 g/dL (12.0-15.0); Mean Corpuscular HGB Conc 33.4 g/dl (32-36); Mean Corpuscular Hemoglobin 32.2 pg (26-34); Mean Corpuscular Volume 96.5 fl (80-100); Mean Platelet Volume 10.6 fl (7.4-10.4); Platelet Count Result 314 k/mm3 (150-375); Red Blood Count 4.87 M/mm3 (4.2-5.4)
[2024-04-21 13:22] LABS: Alanine Aminotransferase 28 U/L (6-35); Albumin Level 4.3 g/dL (3.5-5.1); Alkaline Phosphatase 76 U/L (38-126); Anion Gap 6 mmol/L (4-12); Aspartate Amino Transferase 57 U/L (14-36); Bilirubin,Total 1.2 mg/dL (0.2-1.3); Blood Urea Nitrogen 10 mg/dL (7-17); Calcium 9.2 mg/dL (8.4-10.2); Carbon Dioxide 30 mmol/L (22-30); Chloride 102 mmol/L (98-107); Cholesterol 194 mg/dL (0-200); Estimated Glomerular Filt Rate > 60; Glucose 112 mg/dL (65-110); HDL Direct 43 mg/dL; Potassium 4.2 mmol/L (3.4-5.0); Sodium 138 mmol/L (137-145); Triglycerides 87 mg/dL (<150)
[2024-04-21 13:41] LABS: LDL Cholesterol Direct 119 mg/dL
[2024-04-21 14:01] LABS: Free T4 Free Thyroxine 0.94 ng/dL (0.78-2.19)
[2024-04-21 14:10] LABS: Thyroid Stimulating Hormone 0.234 uIU/mL (0.465-4.680)
[2024-04-21 14:39] LABS: Hemoglobin A1C 5.5 % (<5.7)
== END 2024-04-21 08:39 | disposition home or self-care (01) ==
LOC: ANHGOSHLAB 08:39
PROVIDERS: PCP Family Medicine; Visit Provider Family Medicine
DX: F41.9 Anxiety disorder, unspecified (principal); I10 Essential (primary) hypertension; E11.9 Type 2 diabetes mellitus without complications; E03.8 Other specified hypothyroidism; Z79.899 Other long term (current) drug therapy
CPT/HCPCS: 36415; 80053; 80061; 83036; 84439; 84443; 85027

== ENCOUNTER 2024-11-18 14:28 | Outpatient (CLI) | payer OTHER, SELFPAY ==
--- OUTSIDE RECORDS SUMMARY | 2024-11-18 14:34 | XMS_ITS | Clinical Summary ---
Author Organization [facility] Address [address] [place] [id number] Care Team Providers Care Banking Services Advisor Name Role Phone Unavailable Primary Care Provider Unavailabl e Social History Tobacco Use Types Packs/Day Years Used Date Smoking Tobacco: Never Assessed Comments Unknown Sex and Gender Information Value Date Recorded Sex Assigned at Not on file Legal Sex Female 4:35 PM CDT Gender Identity Not on file Sexual Orientation Not on file Plan of Treatment Health Maintenance Due Date Last Done Comments Cervical Cancer Screening Pa p Smear (Age 30 to 64) Every 3 Years 1973 Colorectal Cancer Screening Colonoscopy (10 Years) 1973 Annual Physical 1976 Hepatitis C 1991 DTaP, Tdap and Td Vaccines ( 1 - Tdap) 1992 Hepatitis B Vaccines (1 of 3 - 19+ 3-dose series) 1992 Cervical Cancer Screening Pa p with HPV Testing (Age 30 to 64) Every 5 Years 2003 Cervical Cancer Screening with HPV 2003 Mammogram Screening 2013 Pneumococcal Vaccine: 50+ Ye ars (1 of 1 - PCV) 2023 Zoster Vaccines (1 of 2) 2023 COVID-19 Vaccine ( - 2023-2 5 season) 2024 Meningococcal B Vaccine Aged Out No l onger eligible based on patient's age to complete this topic Meningococcal Vaccine Aged Out No avinash irineo eligible based on patient's age to complete this topic RSV Immunizations Under 20 Months Aged Out No longer eligible based on patient's age to complete this topic
--- OUTSIDE RECORDS SUMMARY | 2024-11-18 14:34 | XMS_ITS | Referral Summary ---
Author Organization [facility] [place] [address] [facility] [address] Address [address] [place] [address] Care Team Providers Care Asthma Educator Name Role Phone Jennie Hernández MD Primary Care Provider [phone] Allergies No known active allergies Medications phentermine (ADIPEX-P) 37.5 mg tablet take 1 tablet by oral route every day before breakfast 0 0 7 Active Additional Information Patient not taking.Reported on 12/16/2023 metFORMIN (GLUCOPHAGE) 1,000 mg tablet take 1 tablet by oral route every day with morning and evening meals 0 0 7 Active Additional Information Patient not taking.Reported on 12/16/2023 ALPRAZolam (XANAX) 0.5 mg tablet take 1 tablet by oral route 3 times every day 0 0 7 Active Additional Information Patient not taking.Reported on 12/16/2023 spironolactone (ALDACTONE) 100 mg tablet take 1 tablet by oral route every day [address] (CYMBALTA) 30 mg capsule take 1 capsule by oral route every day 0 0 7 Active Additional Information Patient not taking.Reported on 10/20/2020 busPIRone (BUSPAR) 5 mg tablet 1 Active losartan (COZAAR) 100 mg tablet Take 1 tablet (100 mg total) by mouth daily 4 Active Ozempic 2 mg/dose (8 mg/3 mL) pen injector injection Inject 2 mg under the skin Active Active Problems No known active problems Social History Tobacco Use Types Packs/Day Years Used Date Smoking Tobacco: Never Smokeless Tobacco: Never Alcohol Use Standard Drinks/Week Comments No 0 (1 standard drink = 0.6 oz pur e alcohol) Personal Safety Answer Date Recorded Getting School Help Needed Not on file 08/02 Comments No Sex and Gender Information Value Date Recorded Sex Assigned at Not on file Legal Sex Female 12:43 AM [employer]OMATIC [employer]OR MECH[employer]IC Gender Identity Not on file Sexual Orientation Not on file Last Filed Vital Signs Vital Sign Reading Time Taken Comments Blood Pressure 112/74 12/16/2023 11:56 AM CDT Pulse 85 12/16/2023 11:56 AM CDT Temperature 36.6 C (97.8 F) 12/16/2023 11:56 AM CDT Respiratory Rate 18 12/16/2023 11:56 AM CDT Oxygen Saturation 98% 12/16/2023 11:56 AM CDT Inhaled Oxygen Concentration - - Weight 106 kg (233 lb 9.6 oz) 12/16/2023 11:56 A M CDT Height 166.4 cm (5' 5.5) 12/16/2023 11:56 AM CD T Body Mass Index 38.28 12/16/2023 11:56 AM CDT Plan of Treatment Not on file Insurance [facility] Care Teams Asthma Educator Relationship Specialty Start Date End Date Jennie Hernández MD [facility] [address] PCP - General 09/24/16
--- OUTSIDE RECORDS SUMMARY | 2024-11-18 14:34 | XMS_ITS | Data Portability ---
Author Organization [facility] [employer] [facility], Main Office Address [address] [place] [address] Care Team Providers Care Housekeeping Laundry Worker Name Role Phone ELYSSA URBANO Primary Care Provider ELYSSA URBANO Referring Provider [phone] Assessment No assessment recorded. Plan of Treatment Reminders Order Date Submit Date Provider Last Modified By Organization Details Last Modified Time Details Appointments None recorded. Lab HbA1c (hemoglobin A1c), blood 2023 024 [email or web address] [facility], [address], [place], [address], 4 14:46:22 hemoglobin A1C, fingerstick [address], [place], [address], 4 15:24:56 hemoglobin A1C, fingerstick 2022 [email or web address], [place], [address], 3 10:43:18 Referral gastroenter ologist referral - Has never had a colonoscopy . Please call patient to schedule an appointment . Thank you 2023 024 [email or web address] Chaparro Yuan MD, [address] [facility], [facility] [address], [place], [address], 4 08:46:58 Procedures None recorded. Surgeries None recorded. Imaging MAMMO, screening, digital, bilateral - *Please call pt to schedule* 2023 024 [email or web address] [address] [facility], [address], [place] [address], [place], [address], 08:52:00 Medication Orders Ozempic 2 mg/dose (8 mg/3 mL) subcutaneou s pen injector 2023 024 [facility] #[id number], [address] [place], [address], 4 11:45:34 Ozempic 2 mg/dose (8 mg/3 mL) subcutaneou s pen injector 2023 024 [facility] #[id number], [address] [place], [address], 4 10:59:57 Ozempic 1 mg/dose (2 mg/1.5 mL) subcutaneou s pen injector 2023 024 digna Juárez [facility]/Pharmacy #[id number], [address] [place], [address], 4 15:09:38 Ozempic 0.25 mg or 0.5 mg (2 mg/3 mL) subcutaneou s pen injector 2022 023 [email or web address] [facility] #[id number], [address] [place], [address], 4 10:49:53 Patient TargetsNo targets recorded. Patient Instructions Encounter Date Encounter Id Patient Instructions Last Modified By Organization Details Last Modified Time 11/26/2023 [id number] my fingertick a1 c is still not working . she will wait till she sees her new Provider in December . [email or web address] Not available 11/26/2023 11:46:13 Reason for Referral Senior Research Analyst Referral for Screening for malignant neoplasm of colon Has never had a colonoscopy. Please call patient to schedule an appointment. Thank you Referring Physician: Clive Reed, Family Medicine, Encounter Date: 08/27/2023 Results Created Date Observation Date Name Description Value Unit Range Abnormal Flag Note LastModifiedBy Organization Detail LastModifiedTime 01/19/20 23 01/18/2023 hemog lobin A1C, finge rstic k HgbA1C 6.2% Not Available [address], [place], [address], 01/18/2023 10:41:24 05/28/19 24 05/28/2023 hemog lobin A1C, finge rstic k HgbA1C 6.2 Not Available [address], [place], [address], 05/28/2023 15:09:41 Result Notes None recorded. Problems Name Problem SNOMED Code Status Onset Date Resolution Date Notes Provider Name and Address Organization Details Recorded Time Endometriosis (clinical) 028733570 Active 2016 Not Available [facility] 3 12:47:56 Hypertensive disorder 50160776 Active 2020 Not Available [facility] 3 12:47:56 Anxiety 93769759 Active 2020 Not Available [facility] 3 12:47:56 Obesity 003488382 Active 2022 Jennie Hernández MD [address], [place], [address] , [employer] 3 11:06:43 Essential hypertension 60627550 Active 2022 Jennie Hernández MD [address], [place], [address] , [employer] 3 11:07:50 Type 2 diabetes mellitus without complication 919802817 Active 2022 Jennie Hernández MD [address], [place], [address] , [employer] 3 11:09:11 Tinea corporis 06006959 Active 2022 Jennie Hernández MD [address] [facility], [address], [address] , [facility] [employer] 3 11:12:53 Uncontrolled type 2 diabetes mellitus 270287012 Active 2022 Jennie Hernández MD [address] [facility], [address], [address] , [facility] [employer] 3 12:31:21 Pruritic rash 15161993 Active 2022 Jennie Hernández MD [address] [facility], [address], [address] , [facility] [employer] 3 13:39:01 Screening for malignant neoplasm of breast Active 2023 MOOK Govea [address] [facility], [address], [address] , [facility] [employer] 4 12:04:51 Screening for malignant neoplasm of colon Active 2023 MOOK Govea [address] [facility], [address], [address] , [facility] [employer] 4 11:02:19 Problem Notes None recorded. Procedures Surgical History Date Name Laterality Status Provider Name and Address Organization Details Recorded Time Unlisted px femur/knee completed Not Available [facility] 07/18/2022 12:46:20 Tonsillectomy completed Not Available [facility] 07/18/2022 12:46:20 Ablation completed Not Available [facility] 12:46:20 exploratory laparotomy completed Not Available [facility] 07/18/2022 12:46:20 Hysterectomy completed Not [facility] 12:46:20 Carpal tunnel surgery completed Not Available [facility] 07/18/2022 12:46:20 Imaging Results None recorded. Procedure Notes None recorded. Medical Equipment None Reported. Allergies Allergen ID Allergen Name Allergen Category Reaction Reaction Severity Criticality Documentation Date Start Date Code Code System Note Provider Name and Address Organization Details Recorded Time 63385 Victoza medicatio n Not available Not available Not available 10/18/2022 19185 3 [facility] [place] [facility] [place] [employer] [facility] 3 12:35:14 Medications Name Sig Start Date Stop Date Status Note LastModified by Organization Details LastModified Time cyclobenz aprine 10 mg tablet 05/26 completed Not Available Not Available Not Available buspirone 5 mg tablet TAKE 1 TABLET BY MOUTH THREE TIMES A DAY active Not Available Not Available No t Available metformin 500 mg tablet 05/26 completed Not Available Not Available Not Available nabumeton e 750 mg tablet 03/01 completed Not Available Not Available Not Available triazolam 0.25 mg tablet TAKE 1 TABLET 1 HOUR PRIOR TO APPOINTM ENT active Not Available Not Available No t Available azithromy zofia 250 mg tablet 09/21 completed Not Available Not Available Not Available valacyclo vir 1 gram tablet Take 2 tablets every 12 hours by oral route for 1 day. active Not Available Not Available No t Available hydrocodo ne 5 mg-acetam inophen 325 mg tablet TAKE 1 TABLET BY MOUTH EVERY 6 HOURS NEEDED FOR PAIN 08/11 completed Not Available Not Available Not Available meloxicam 15 mg tablet 03/01 completed Not Available Not Available Not Available lisinopri l 20 mg tablet TAKE 1 TABLET BY MOUTH EVERY DAY 03/15 completed Not Available Not Available Not Available prednison e 20 mg tablet 09/21 completed Not Available Not Available Not Available spironola ctone 100 mg tablet TAKE 1 TABLET BY MOUTH EVERY DAY 2023 active Not Available Not Available Not Avai lable clobetaso l 0.05 % topical cream APPLY THIN COAT TO AFFECTED AREA TWICE A DAY 2023 active Not Available Not Available Not Avai lable phentermi ne 37.5 mg tablet TAKE 1 TABLET BY MOUTH EVERY DAY 01/18 completed Not Available Not Available Not Available fexofenad ine 180 mg tablet TAKE 1 TABLET BY MOUTH EVERY DAY 05/26 completed Not Available Not Available Not Available tramadol 50 mg tablet active Not Available Not Available Not Available amoxicill in 500 mg tablet 1 TABLET 3 TIMES A DAY active Not Available Not Available No t Available phendimet razine tartrate ER 105 mg capsule,e xtended release TK 1 C PO D 05/26 completed Not Available Not Available Not Available alprazola m 0.5 mg tablet 05/26 completed Not Available Not Available Not Available propranol ol 10 mg tablet TAKE 1 TABLET 3 TIMES A DAY BY ORAL ROUTE NEEDED. active Not Available Not Available No t Available alprazola m 0.25 mg tablet Take 1 tablet 3 times a day by oral route as needed. 03/22 completed Not Available Not Available Not Available meclizine 25 mg tablet 03/01 completed Not Available Not Available Not Available clotrimaz ole-betam ethasone 1 %-0.05 % topical cream APPLY TO AFFECTED AREA TWICE A DAY X2WKS TOPICALL Y IN THE MORNING AND EVENING (AND SURROUND ING AREAS active Not Available Not Available No t Available promethaz ine 25 mg tablet 03/01 completed Not Available Not Available Not Available progester one micronize d 200 mg capsule Take 1 capsule every day by oral route for 12 days. active Not Available Not Available No t Available docusate sodium 100 mg capsule TAKE 1 CAPSULE BY MOUTH EVERY DAY AND TAKE 2 CAPSULES NEEDED 03/01 completed Not Available Not Available Not Available monteluka st 10 mg tablet 05/26 completed Not Available Not Available Not Available ibuprofen 600 mg tablet 05/26 completed Not Available Not Available Not Available levofloxa zofia 500 mg tablet 09/21 completed Not Available Not Available Not Available methylpre dnisolone 4 mg tablets in a dose pack TAKE 6 TABLETS ON DAY 1 DIRECTED ON PACKAGE AND DECREASE BY 1 TAB EACH DAY FOR A TOTAL OF 6 DAYS active Not Available Not Available No t Available ondansetr on 4 mg disintegr ating tablet 03/01 completed Not Available Not Available Not Available losartan 100 mg tablet TAKE 1 TABLET BY MOUTH EVERY DAY active Not Available Not Available No t Available fluticaso ne propionat e 50 mcg/actua tion nasal spray,emma pension 05/26 completed Not Available Not Available Not Available metformin ER 500 mg tablet,ex tended release 24 hr 05/26 completed Not Available Not Available Not Available phentermi ne 37.5 mg capsule TAKE 1 CAPSULE BY MOUTH DAILY 03/01 completed Not Available Not Available Not Available amoxicill in 875 mg-potass ium clavulana te 125 mg tablet TAKE 1 TABLET BY MOUTH EVERY 12 HOURS FOR 10 DAYS 12/13 completed Not Available Not Available Not Available tobramyci n 0.3 %-dexamet hasone 0.1 % eye drops,emma pension ADMINIST ER 1 DROP 4 TIMES DAILY IN AFFECTED EYES FOR 7 DAYS 06/15 completed Not Available Not Available Not Available metaxalon e 800 mg tablet 03/01 completed Not Available Not Available Not Available duloxetin e 30 mg capsule,d elayed release TAKE ONE CAPSULE BY MOUTH EVERY DAY 09/22 completed Not Available Not Available Not Available berberine -herbal comb no.18 03/01 completed Not Available Not Available Not Available Victoza 2-Smith 0.6 mg/0.1 mL (18 mg/3 mL) subcutane ous pen injector INJECT 5 MG SUBCUTAN EOUSLY WEEKLY active Not Available Not Available No t Available Contrave 8 mg-90 mg tablet,ex tended release TAKE 2 TABLETS BY MOUTH TWICE A DAY active Not Available Not Available No t Available Saxenda 3 mg/0.5 mL (18 mg/3 mL) subcutane ous pen injector inject 0.6 mg daily for the first week. week 2 1.2mg daily, week 3 1.8mg daily,we ek 4 2.4mg daily, week 5 and every week after inject 3.0 mg 10/28 completed Not Available Not Available Not Available Ozempic 1 mg/dose (2 mg/1.5 mL) subcutane ous pen injector Inject 1 mg every week by subcutan eous route for 30 days. 2023 active Not Available Not Available Not Avai lable Ozempic 0.25 mg or 0.5 mg (2 mg/1.5 mL) subcutane ous pen injector Inject 0.25 mg every week by subcutan eous route. 08/26 completed dose increase Not Available Not Available Not Available Ozempic 1 mg/dose (4 mg/3 mL) subcutane ous pen injector INJECT 1 MG SUBCUTAN EOUSLY EVERY WEEK FOR 30 DAYS. active Not Available Not Available No t Available Ozempic 2 mg/dose (8 mg/3 mL) subcutane ous pen injector Inject 2 mg every week by subcutan eous route. 2023 active Not Available Not Available Not Avai lable Mounjaro 2.5 mg/0.5 mL subcutane ous pen injector Inject 5 mg every week by subcutan eous route. 2022 active Not Available Not Available Not Avai lable Ozempic 0.25 mg or 0.5 mg (2 mg/3 mL) subcutane ous pen injector Inject 0.5 mg every week by subcutan eous route. 08/26 completed dose increase Not Available Not Available Not Available Vitals Date Recorded Body height Body mass index (BMI) Body weight Body temperature Heart rate Oxygen saturation Oxygen saturation in Arterial blood by Pulse oximetry Systolic blood pressure Diastolic blood pressure Provider Name and Address Organization Details Last Updated DateTime 4 165.1 cm 39.1 kg/m2 711638. 21 g 97 [degF] 97 /min 97 % 97 % 128 mm[Hg] 86 mm[Hg] Nasrin Lentz MA [facility] [employer] [facility] 4 11:42:36 Date Recorded Body height Body mass index (BMI) Body weight Body temperature Respiratory rate Heart rate Oxygen saturation Oxygen saturation in Arterial blood by Pulse oximetry Systolic blood pressure Diastolic blood pressure Provider Name and Address Organization Details Last Updated DateTime 4 165.1 cm 39.8 kg/m2 288515. 58 g 97.5 [degF] 16 /min 84 /min 98 % 98 % 140 mm[Hg] 98 mm[Hg] Megha Fitzgerald RN [facility] [employer] [facility] 4 10:48:21 Date Recorded Body height Body mass index (BMI) Body weight Body temperature Heart rate Oxygen saturation Oxygen saturation in Arterial blood by Pulse oximetry Systolic blood pressure Diastolic blood pressure Provider Name and Address Organization Details Last Updated DateTime 4 165.1 cm 39.3 kg/m2 399172. 85 g 98.7 [degF] 80 /min 97 % 97 % 138 mm[Hg] 88 mm[Hg] Humaira Arnold MA [facility] [employer] [facility] 4 11:35:26 Date Recorded Body height Body mass index (BMI) Body weight Body temperature Heart rate Oxygen saturation Oxygen saturation in Arterial blood by Pulse oximetry Systolic blood pressure Diastolic blood pressure Provider Name and Address Organization Details Last Updated DateTime 3 165.1 cm 38.3 kg/m2 302428. 25 g 97.9 [degF] 87 /min 98 % 98 % 132 mm[Hg] 82 mm[Hg] Nasrin Lentz MA [facility] [employer] [facility] 3 10:29:58 Date Recorded Body height Body mass index (BMI) Body weight Body temperature Oxygen saturation Oxygen saturation in Arterial blood by Pulse oximetry Heart rate Systolic blood pressure Diastolic blood pressure Provider Name and Address Organization Details Last Updated DateTime 3 165.1 cm 37.9 kg/m2 527159. 06 g 97 [degF] 98 % 98 % 78 /min 118 mm[Hg] 82 mm[Hg] Nasrin Lentz MA [facility] [employer] [facility] 3 10:04:33 Social History Question Answer Notes LastModified by Reelio Details LastModified Time Tobacco Smoking Status Never Smoker Not Available [facility] 07/18/2022 12:45:55 In The 14 Days Before Symptom Onset, Have You Had Close Contact With A Laboratory-confirm ed COVID-19 While That Case Was Ill? No [id number] Information not available 07/18/2022 In The 14 Days Before Symptom Onset, Have You Had Close Contact With A Person Who Is Under Investigation For COVID-19 While That Person Was Ill? No [id number] Information not available 07/18/2022 Sex: Unknown Functional Status None recorded. Mental Status None recorded. Family History Relationship Description Onset Age of this Age Resolved Age Notes LastModified by Organization Details LastModified Time Paternal Grandfather Diabetes mellitus [id number] [id number] Not available 07/18/2022 12:46:20 Mother Family history of stroke [email or web address] Not available 01/18 10:21:51 Paternal Aunt Family history of malignant neoplasm [email or web address] Not available 01/18 10:21:51 Paternal Aunt Family history of malignant neoplasm [email or web address] Not available 01/18 10:21:51 Maternal Grandmother Family history of malignant neoplasm [email or web address] Not available 09/01 /2023 10:21:51 Father Hypertensive disorder [id number] Not available 07/18/2022 12:46:20 Father Hyperlipidem ia [email or web address] Not available 01/18 10:21:51 Medical History No medical history recorded. Gynecological HistoryNo gynecological history recorded. Obstetrics History GPAL:G 0 P 0 0 0 0 Past Encounters Encounter ID Performer Location Encounter Start Date Encounter Closed Date Diagnosis/Indication Diagnosis SNOMED-CT Code Diagnosis ICD10 Code Diagnosis Note [id number] Jennie Hernández MD [facility] [place] [address] [place] [address] 08/11/2020 00:00:00 08/12/2020 06:23:01 [id number] Jennie Hernández MD [facility] [place] [address] [place] [address] 08/16/2021 00:00:00 08/16/2021 20:39:13 [id number] Jennie Hernández MD [facility] [place] [address] [place] [address] 09/13/2021 00:00:00 09/13/2021 13:31:48 [id number] Jennie Hernández MD [facility] [place] [address] [place] [address] 12/13/2021 00:00:00 12/13/2021 20:43:04 [id number] Jennie Hernández MD [facility] [place] [address] [place] [address] 03/15/2022 00:00:00 03/15/2022 13:33:38 [id number] Jennie Hernández MD [facility] [place] [address] [place] [address] 06/15/2022 00:00:00 06/15/2022 16:46:50 [id number] Jennie Hernández MD [facility] [place] [address] [place] [address] [place] [address] 06/29/2022 00:00:00 06/29/2022 11:47:55 [id number] Jennie Hernández MD [facility] [place] [address] [place] [address] [place] [address] 07/27/2022 10:41:51 07/27/2022 11:11:31 Obesity 710113820 E66.9 F/u in 1 month. Essential hypertension 60776414 I10 Continue losartan. [id number] Jennie Hernández MD [facility] [place] [address] [place] [address] [place] [address] 10/18/2022 10:54:10 10/18/2022 11:34:05 Type 2 diabetes mellitus without complication 730908533 E11.9 A1C is 7.8% Needs to start mounjaro 2.5 mg given in clinic. F/u in 3 months. If insurance does not cover will switch to ozempic. Essential hypertension 01922144 I10 Continue losartan get refilled. Tinea corporis 01110110 B35.4 Anxiety 17377750 F41.9 Use alprazolam as needed [id number] Jennie Hernández MD [facility] [place] [address] [place] [address] [place] [address] 01/18/2023 10:21:32 01/18/2023 10:55:00 Type 2 diabetes mellitus without complication 062297251 E11.9 A1C is 6.2% doing ok. Continue ozempic but at 0.5 mg weekly. F/u in 3 months [id number] Jennie Hernández MD [facility] [place] [address] [place] [address] [place] [address] 03/22/2023 09:58:36 03/22/2023 10:08:31 [id number] Jennie Hernández MD [facility] [place] [address] [place] [address] [place] [address] 05/28/2023 11:33:01 05/28/2023 12:07:59 Type 2 diabetes mellitus without complication 048053682 E11.9 Obesity 325543062 E66.9 Essential hypertension 58881852 I10 Screening for malignant neoplasm of breast 829299433 Z12.39 [id number] Timmy Herron MD [facility] [place] [address] [place] [address] [place] [address] 08/27/2023 10:41:39 08/27/2023 11:08:43 Type 2 diabetes mellitus without complication 083735268 E11.9 Screening for malignant neoplasm of colon 070270838 Z12.11 [id number] Timmy Herron MD [facility] [place] [address] [place] [address] [place] [address] 11/26/2023 11:23:19 11/26/2023 11:48:10 Type 2 diabetes mellitus without complication 189651495 E11.9 Obesity 629126527 E66.9 Essential hypertension 91467994 I10 Health Concerns Section Related Observation LastModified by Organization Detai ls LastModified Time None Recorded Concern Status LastModified by Organization Details LastModified Time None Recorded Advance Directives Directive None Recorded Payers Insurance Date Sequence Insurance Name Policy Number Policy Griffin Covered Member ID Griffin Member ID Guarantor Name 11/23/2023 1 [employer] [id number] Alberto Amador [id number] Eliaz Amador Notes Date Note Type Note Provider Name and Address Organization Details Recorded Time 01/18/2023 text/html Here today for A1C check for DM2. Been doing ok. Is on ozempic 0.25 mg. Has a rash on right thigh. It is red bumps. 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 Jennie Hernández MD [address], [facility] [address], [place], [address], [facility] [employer] 01/18/2023 20:00:17 05/28/2023 text/html needs ozempic MOOK Govea [address], [address], [place], [address], [employer] [facility] 06/01/2023 14:56:35 08/27/2023 text/html no changes MOOK Govea [address], [address], [place], [address], [employer] [facility] [employer] [facility] 09/06/2023 14:47:36 11/26/2023 text/html no side effects , feels the ozempic is working . new doc appt in mid December . MOOK Govea [address], [place], [address], [employer] [facility] [employer] [facility] 11/26/2023 12:01:59 OBGyn Episode No OBEpisode recorded.
--- OUTSIDE RECORDS SUMMARY | 2024-11-18 14:34 | XMS_ITS | Patient Health Record ---
Author Organization [facility] Address [address] [place], [place] [id number] Care Team Providers Care Skin Care Consultant Name Role Phone JenniferpoloGRABIEL gascaILY Unavailable [phone] Jennie Francisco Unavailable Unavailable Reason For Referral No Information Plan Of Treatment No Information Insurance Providers Payer Name Payer Address Payer Phone Subscriber Number Group Number Insured Name Patient Relationship to Insured Coverage Start Date Coverage End Date [employer] [address] [place] [phone] [id number] KELLY YEE Spouse - patient is the spouse of the insured
--- OUTSIDE RECORDS SUMMARY | 2024-11-18 14:34 | XMS_ITS | Clinical Summary ---
Author Organization [facility] [address] [facility] [address] Address [address] [place] [address] Care Team Providers Care Accountant Auditor Name Role Phone Jennie Hernández MD Primary Care Provider +1- [phone] Allergies No known active allergies Medications phentermine [...] Active Active Problems No known active problems Surgical History Surgery Date Site/Laterality Comments HYSTERECTOMY Medical History Medical History Date Comments Hx Other Medical Anxiety/depress ion Hx Other Medical Ophrectomy, rig ht ankle surgery, tonsillectomy, ca Family History Medical History Relation Name Comments Other Brother 2 Alive and well; Hypertension Father Hypertension; Other Father Alive and well; Other Mother Alive and well; Stroke Mother Stroke; Relation Name Status Comments Brother 1 Alive Brother 2 Father Alive Mother Alive Social History Tobacco Use Types Packs/Day Years [...] on file 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 Gender Identity Not on file Sexual Orientation Not on file Obstetrics History Last Filed Vital Signs Vital Sign Reading [...] 12/16/2023 11:56 AM CDT Plan of Treatment Health Maintenance Due Date Last Done Comments Breast Cancer Screening-Mammogram 1973 Colon Cancer Screening-Colonoscopy 1973 Depression Screening 1973 Hepatitis C Screening 1973 DTaP/Tdap/Td Vaccine (1 - Tdap) 1984 Hepatitis B Screening 1991 Regular Well Visit/Exam 18-64 1991 Zoster Vaccine (1 of 2) 2023 Influenza Vaccine (Season Ended) 2025 Pneumococcal vaccine <65 Aged Out No longer eligible based on patient's age to complete this topic Insurance [facility] PPO [facility] HMO Care Teams Accountant Auditor Relationship Specialty Start Date End Date Jennie Hernández MD [address] [place] [address] [place] [address] PCP - General 09/24/16
--- OUTSIDE RECORDS SUMMARY | 2024-11-18 14:35 | XMS_ITS | Clinical Summary ---
Author Organization [facility] Address [address] [place] [address] Phone Care Team Providers Care Cable Testers Helper Name Role Phone Jennie Hernández MD Primary Care Provider [phone]- [phone] Social History Tobacco Use Types Packs/Day Years Used Date Smoking Tobacco: Never Assessed Comments Unknown Sex and Gender Information Value Date Recorded Sex Assigned at Not on file Legal Sex Female 7:38 PM CDT Gender Identity Not on file Sexual Orientation Not on file Plan of Treatment Health Maintenance Due Date Last Done Comments Hepatitis C Virus (HCV) Screening 1973 TdaP Immunization 1973 Hepatitis B Immunization (1 of 3 - 19+ 3-dose series) 1992 Cologuard 2018 Colonoscopy 2018 Colorectal Cancer Screening 2018 Immunochemical Fecal Occult Blood 2018 Pneumococcal Immunization (5 0+ years) (1 of 1 - PCV) 2023 Zoster Immunization (1 of 2) 2023 SARS-COV-2 Immunization ( - 2023- season) 2024 Influenza Immunization (Seas on Ended) 2025 Respiratory Syncytial Virus (RSV) Immunization (Adult) (1 - 1-dose 75+ series) 2048 Human Papillomavirus (HPV) Immunization Aged Out No longer eligible b ased on patient's age to complete this topic Meningococcal Immunization (ACWY) Aged Out No longer eligible based on patient's age to complete this topic Rotavirus Immunization Aged Out No lo nger eligible based on patient's age to complete this topic Care Teams Cable Testers Helper Relationship Specialty Start Date End Date Jennie Hernández MD [facility] [place] [address] PCP - General Wood Tank Erector 10/16/17
[2024-11-18 18:45] LABS: Hematocrit 46.9 % (37.0-47.0); Hemoglobin 15.7 g/dL (12.0-15.0); Mean Corpuscular HGB Conc 33.5 g/dl (32-36); Mean Corpuscular Hemoglobin 32.1 pg (26-34); Mean Corpuscular Volume 95.9 fl (80-100); Platelet Count Result 311 k/mm3 (150-375); Red Blood Count 4.89 M/mm3 (4.2-5.4); White Blood Count 7.8 K/mm3 (4.5-10.0)
[2024-11-18 18:59] LABS: Alanine Aminotransferase 21 U/L (6-35); Albumin Level 4.3 g/dL (3.5-5.1); Alkaline Phosphatase 71 U/L (38-126); Anion Gap 9 mmol/L (4-12); Aspartate Amino Transferase 38 U/L (14-36); Bilirubin,Total 1.0 mg/dL (0.2-1.3); Blood Urea Nitrogen 10 mg/dL (7-17); Calcium 9.5 mg/dL (8.4-10.2); Carbon Dioxide 28 mmol/L (22-30); Chloride 102 mmol/L (98-107); Cholesterol 186 mg/dL (0-200); Estimated Glomerular Filt Rate > 60; Glucose 87 mg/dL (65-110); HDL Direct 42 mg/dL; Potassium 4.3 mmol/L (3.4-5.0); Sodium 139 mmol/L (137-145); Total Protein 7.8 g/dL (6.3-8.2); Triglycerides 75 mg/dL (<150)
[2024-11-18 19:01] LABS: Hemoglobin A1C. 5.1 % (<5.7)
[2024-11-18 19:19] LABS: Free T4 Free Thyroxine. 1.36 ng/dL (0.78-2.19)
[2024-11-18 19:29] LABS: Thyroid Stimulating Hormone 1.130 uIU/mL (0.465-4.680)
== END 2024-11-18 14:29 | disposition home or self-care (01) ==
LOC: ANHGOSHLAB 14:29
PROVIDERS: PCP Family Medicine; Visit Provider Family Medicine
DX: E03.8 Other specified hypothyroidism (principal); I10 Essential (primary) hypertension; E11.9 Type 2 diabetes mellitus without complications; Z79.899 Other long term (current) drug therapy
CPT/HCPCS: 36415; 80053; 80061; 83036; 84439; 84443; 85027

== ENCOUNTER 2025-02-15 14:57 | Outpatient (CLI) | payer OTHER, SELFPAY ==
--- NOTE | 2025-02-15 15:15 | ECG_ITS ---
Test Date: 2025-02-15 15:28:46 Measurements Intervals [place] Rate: 78 P: 35 OR: 150 QRS: 0 QRSD: 80 T: 30 QT: 342 QTc: 392 Interpretive Statements SINUS RHYTHM WITH OCCASIONAL VENTRICULAR PREMATURE COMPLEXES No previous ECG available for comparison Electronically Signed On 02-15-2025 16:09:28 CDT by Lowell Corey M.D.
[2025-02-15 15:35] LABS: Hematocrit 47.1 % (37.0-47.0); Hemoglobin 16.0 g/dL (12.0-15.0); Immature Granulocyte Percent A 0.2 % (0-0.5); Lymphocytes Absolute Auto 2.40 K/mm3 (0.9-3.2); Mean Corpuscular HGB Conc 34.0 g/dl (32-36); Mean Corpuscular Hemoglobin 32.3 pg (26-34); Mean Corpuscular Volume 95.0 fl (80-100); Nucleated Red Blood Cells Absolute Auto 0.000 K/mm3 (0.0-0.012); Nucleated Red Blood Cells Perc 0.0 % (0.0-0.2); Platelet Count Result 304 k/mm3 (150-375); Red Blood Count 4.96 M/mm3 (4.2-5.4); White Blood Count 8.3 K/mm3 (4.5-10.0)
--- OUTSIDE RECORDS SUMMARY | 2025-02-15 15:55 | XMS_ITS | Clinical Summary ---
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
--- OUTSIDE RECORDS SUMMARY | 2025-02-15 15:55 | XMS_ITS | Clinical Summary ---
Author Organization [facility] Address [address] [place] [address] Care Team Providers Care Goodyear Stitcher Name Role Phone Unavailable Primary Care Provider [...] Vaccines (1 of 2) 2023 COVID-19 Vaccine (1 - 2023-2 5 season) 2025 Meningococcal B Vaccine Aged Out No l onger eligible based on patient's age to complete this topic Meningococcal Vaccine Aged Out No avinash irineo eligible based on patient's age to complete this topic RSV Immunizations Under 20 Months Aged Out No longer eligible based on patient's age to complete this topic
--- OUTSIDE RECORDS SUMMARY | 2025-02-15 15:55 | XMS_ITS | Clinical Summary ---
Author Organization [facility] Address [address] [place] [address] Phone Care Team Providers Care Sash Finisher Name Role Phone Jennie Hernández MD Primary Care Provider +1- [phone] Social History Tobacco Use Types Packs/Day Years [...] of 3 - 19+ 3-dose series) 1992 Pap Smear 1994 Cervical Cancer Screening (CCS) 2003 HPV/Cotest 2003 Cologuard 2018 Colonoscopy 2018 Colorectal Cancer Screening 2018 Immunochemical Fecal Occult Blood 2018 Pneumococcal Immunization (5 0+ years) (1 of 1 - PCV) 2023 Zoster Immunization (1 of 2) 2023 Influenza Immunization (#1) 2025 SARS-COV-2 Immunization ( - season) 2025 Respiratory Syncytial Virus (RSV) Immunization (Adult) [...] age to complete this topic Care Teams Sash Finisher Relationship Specialty Start Date End Date Jennie Hernández MD [address] [address] PCP - General User Interface Designer 10/16/17
--- OUTSIDE RECORDS SUMMARY | 2025-02-15 15:55 | XMS_ITS | Patient Health Record ---
Author Organization [facility] Address [address] [place], [place] [id number] Care Team Providers Care Agriculture Specialist Name Role Phone JenniferpoloGRABIEL gascaILY Unavailable [phone] Jennie Francisco Unavailable Unavailable Reason For Referral No Information Plan Of Treatment No Information Insurance Providers Payer Name Payer Address Payer Phone Subscriber Number Group Number Insured Name Patient Relationship to Insured Coverage Start Date Coverage End Date Aetna [address] [place] [phone] [id number] KELLY YEE Spouse - patient is the spouse of the insured
[2025-02-15 15:58] LABS: Anion Gap 9 mmol/L (4-12); Blood Urea Nitrogen 12 mg/dL (7-17); Calcium 9.1 mg/dL (8.4-10.2); Carbon Dioxide 26 mmol/L (22-30); Chloride 102 mmol/L (98-107); Estimated Glomerular Filt Rate > 60; Glucose 96 mg/dL (65-110); Potassium 4.1 mmol/L (3.4-5.0); Sodium 137 mmol/L (137-145)
== END 2025-02-15 14:58 | disposition home or self-care (01) ==
LOC: ANHSURGERY 15:02
PROVIDERS: Anesthesiology; PCP Family Medicine; Visit Provider Surgery
DX: E11.9 Type 2 diabetes mellitus without complications (principal); I10 Essential (primary) hypertension; L02.212 Cutaneous abscess of back [any part, except buttock and flank]
CPT/HCPCS: 36415; 80048; 85025; 93005

== ENCOUNTER 2025-02-17 00:53 | Day surgery (SDC) | payer OTHER, SELFPAY ==
[2025-02-04 12:59] VITALS: BMI 30.9
--- NOTE | 2025-02-04 13:00 | PC.NURSE ---
[facility] has started construction of its new state of the art ER which will open Spring 2026. With this, we anticipate parking may be a challenge for some our surgical patients and families. Parking spaces are limited but are available for all Surgical, obstetrics, and ER patients sharing this lot. If you arrive and find you are having a hard time finding a parking space, please note that we understand the challenges, please drive around the hospital and park near Hospital Entrance 1. When you enter this entrance, you can ask a volunteer to direct or take you back to the surgical waiting area to check in. We appreciate everyone?s understanding of these expected challenges while we build for your future. Report to the Outpatient Waiting Room, entrance under the green pavilion located off [address], at time _0930_ on date _[id number]_. Planned Procedure Time: _1130_.? Time changes happen often and if your time is changed the preop area will call you the afternoon before. - You and your visitor will be asked to self-screen and do not enter if you have any COVID symptoms. Please call surgeon if you need to reschedule. - A mask is optional within the hospital at this time. Patients may have clear liquids (water, carbonated beverages, clear teas, apple juice) until 3 hours prior to surgery with a maximum of 20 ounces. - No food from midnight until time of surgery and no smoking, or chewing tobacco (or any form of nicotine). No chewing gum, candy or mints. Take only the following medications with a SIP of water on the morning of surgery: ___Buspirone and if needed Propanolol DO NOT STOP ANY OF YOUR OTHER PRESCRIPTION MEDICATIONS PRIOR TO SURGERY EXCEPT THE FOLLOWING Hold all vitamins and supplements for 3 days per anesthesiologist. Medications to discontinue per physician Date to take last dose____ Please no make-up, nail icelandic, hairspray, perfume, deodorant, or body powder the day of surgery.? No jewelry (including any body piercings) or valuables the day of surgery, leave them at home.? Please take a shower or bath the night before, or the morning of, surgery with an antibacterial soap.? Wear comfortable, loose fitting clothing.? - Jewelry must be removed prior to entering the operating room.? Rings and piercings that are not removed may be cut off. - The hospital will not accept responsibility for valuables.? - Please leave all valuables, including medications, at home the day of surgery. If you are going home after surgery, a licensed peg driver must drive you home.? - NO public transportation without another adult if you receive anesthesia. - We recommend that an adult stay with you for 24 hours following discharge. - We also recommend that you do not drive, make important decision, drink alcoholic beverages, or take any drugs that were not prescribed by your health care provider for at least 24 hours after your discharge time. Follow any additional instructions given to you from your surgeon. Telephone instructions given to __Eliza__and asked if any additional questions and then verbalized understanding. Patient advised to call surgeon office or pre surgery nurse liaison [phone] if any additional questions.
--- OUTSIDE RECORDS SUMMARY | 2025-02-17 02:14 | XMS_ITS | Clinical Summary ---
Author Organization [facility] Address [address] [place] [address] Care Team Providers Care Nike Athlete Name Role Phone Unavailable Primary Care Provider [...] Vaccine (1 - 2023-2 5 season) 2025 Influenza Adult (#1) 2025 Meningococcal B Vaccine Aged Out No l onger eligible based on patient's age to complete this topic Meningococcal Vaccine Aged Out No avinash irineo eligible based on patient's age to complete this topic RSV Immunizations Under 20 Months Aged Out No longer eligible based on patient's age to complete this topic
--- OUTSIDE RECORDS SUMMARY | 2025-02-17 02:14 | XMS_ITS | Patient Health Record ---
Author Organization [facility] Address [address] [place], [place] [id number] Care Team Providers Care Inspector Integrated Circuits Name Role Phone JenniferpoloGRABIEL gascaILY Unavailable [phone] Jennie Francisco Unavailable Unavailable Reason For Referral No Information Plan Of Treatment No Information Insurance Providers Payer Name Payer Address Payer Phone Subscriber Number Group Number Insured Name Patient Relationship to Insured Coverage Start Date Coverage End Date Aetna [address] [place] [phone] [id number] KELLY YEE Spouse - patient is the spouse of the insured
--- OUTSIDE RECORDS SUMMARY | 2025-02-17 02:14 | XMS_ITS | Clinical Summary ---
Author Organization [facility] Address [address] [place] [address] Phone Care Team Providers Care Independent Producer Name Role Phone Jennie Hernández MD Primary Care Provider +1- [phone] Social History Tobacco Use Types Packs/Day Years [...] age to complete this topic Care Teams Independent Producer Relationship Specialty Start Date End Date Jennie Hernández MD [address] [place] [address] PCP - General E Commerce Analyst 10/16/17
--- OUTSIDE RECORDS SUMMARY | 2025-02-17 02:14 | XMS_ITS | Clinical Summary ---
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
--- NOTE | 2025-02-17 07:50 | WPDHPUPDATE1 ---
History and Physical Update Update Date/Time: 02/17/25 07:50 History and Physical has been reviewed, including an updated exam of the patient. There are NO changes in the patient's condition. Risks, benefits, and alternatives have been discussed and questions answered. Patient agrees to proceed with procedure.
[2025-02-17] MEDS: LACTATED RINGERS 1,000 ML 30 ML IV CONT (08:40)
--- NOTE | 2025-02-17 08:53 | SUR.PREOP ---
PT MADE AWARE OF SURGERY TIME DELAY
[2025-02-17 08:57] VITALS: BP 126/79; PULSE 79; RESP 16; TEMP 36.1; O2SAT 100
--- NOTE | 2025-02-17 11:09 | SUR.PREOP ---
1045 PT UPDATED ON SURGERY TIME DELAY, DENIES NEEDS AT THIS TIME
--- NOTE | 2025-02-17 11:31 | WPDANESEPPF ---
Anes - Initial Pre Proc Eval Procedure: Operation Date: 02/17/25 10:30 Proposed Procedures p Excision Skin Back Cyst - Chacorta Sun MD Date/Time: 02/17/25 11:31 Surgeon: Chacorta Sun MD Pre Op Diagnosis: Left Upper Back Cyst Patient Data Age: 49 Gender: F Height: 1.65 m Weight: 84.6 kg Last Vital Signs Temp 36.1 C L 02/17/25 08:57 Pulse 79 02/17/25 08:57 Resp 16 02/17/25 08:57 BP 126/79 02/17/25 08:57 Pulse Ox 100 02/17/25 08:57 O2 Del Method Room Air 02/17/25 08:57 Allergies Allergy/AdvReac Type Severity Reaction Status Date / Time eggplant Allergy Intermediate Hives Verified 02/17/25 08:33 Home Medications ?Medication ?Instructions ?Recorded ?Confirmed ?Type buspirone 5 mg tablet 10 mg PO DAILY 02/26/20 02/17/25 History valacyclovir 1 gram tablet 2,000 mg (2 x 1 gram) PO Q12H PRN 01/07/24 02/04/25 Rx cold sores #20 tabs tirzepatide 15 mg/0.5 mL 15 mg (0.5 mL) subcut WEEKLY #2 mL 09/08/24 02/17/25 Rx subcutaneous pen injector (Sumanunbartoloro) losartan 100 mg tablet 100 mg PO DAILY #90 tabs 10/09/24 02/17/25 Rx propranolol 10 mg tablet 10 mg PO TID PRN Anxiety #270 tabs 11/03/24 02/04/25 Rx progesterone micronized 200 mg 300 mg PO QHS 11/05/24 02/17/25 History capsule testosterone 25 mg implant pellet 25 mg implant .[id number] 11/05/24 02/17/25 History lisdexamfetamine 30 mg capsule 30 mg PO DAILY 02/17/25 02/17/25 History (Vyvanse) Laboratory Tests 02/17/25 08:42 POC Capillary Glucose 82 mg/dl (65-105) Patient hx anesthesia problems: none Family hx anesthesia problems: none Results Review: All pre-operative results and documents have been reviewed as part of the pre-operative evaluation. [facility] Past Medical History Medical History ADHD Diabetes Fracture of right tibia and fibula HTN (hypertension) Anxiety Morbid obesity Surgical History Surgical History History of incision and drainage 11/23/2024 abscess of back performed in office History of hysterectomy Hx of prior ablation treatment Hx of tubal ligation History of tonsillectomy and adenoidectomy 1978 H/O laparoscopy Family History Family History Father Hypertension Alcoholism Grandparent Cerebrovascular accident Family history of coronary artery disease Diabetes mellitus Alcoholism Breast cancer Heart disease Hypertension Mother Depression Cerebrovascular accident Hypertension Anti-phospholipid antibody syndrome Social History Social History Smoking status: Never smoker Second hand tobacco smoke exposure: No Alcohol intake: current Drinks per week: 7 Alcohol use details: ONE COCKTAIL DAILY Substance use: never Substance use type: does not use Do You Feel Safe in your Home?: Yes Lack of Transportation: No Lack of Food: Never True Current Housing: I Have Housing Concerned About Future Housing: No Difficulty Paying Gas/Electric Bills: No Difficulty Paying for Meds: No Currently Unemployed: No Education: Bachelor's Degree Difficulty w/ Childcare or Family Care: No Living arrangements: with family Occupation/Education: occupation Additional occupation/education comments: [employer] Spiritual care concerns: No Agree to blood products: No Anes - Eval Final PreProcedure Day of Procedure 02/17/25 11:31 Patient weight: obese Heart: regular rate and rhythm Lungs: clear to auscultation Airway: Mallampati scale class II Neurological: alert and oriented Last oral intake: >/= 8 hours ASA classification: III Emergent: no Anesthetic plan: proceed Anesthesia type and monitoring: general GIVS and standard monitoring Results Review: All pre-operative results and documents have been reviewed as part of the pre-operative evaluation. Informed Consent: The patient's anesthetic plan and its attendant risks and benefits were discussed with the patient/family/POA. Questions were solicited and answers provided to the satisfaction of the patient/family/POA.
--- NOTE | 2025-02-17 12:36 | SUR.PREOP ---
1225 DR AMBROSE IN TO SEE PT.
[2025-02-17] MEDS: ceFAZolin 2 GM in SODIUM CHLORIDE 0.9% IV 50 ML 100 ML IVPB (12:47)
[2025-02-17] MEDS: BUPIVACAINE/EPINEPHRINE 0.5% 50 ML VIAL 30 ML INFILTRATE (13:11)
--- NOTE | 2025-02-17 13:11 | S_PTH ---
PATIENT: Eliza Amador LOC: [facility] U#:[id number] AGE/SX: 49/F ROOM: RE02/17/[address]: Chacorta Sun MD : 1975 BED: DIS: 02/17/2025 SPEC #: [id number] RECD: 02/17/25 14:06 STATUS: LANE REQ #: [id number] ROSALINE: 02/17/25 13:[address]: Chacorta Sun DEPT: [facility] Surgical RECD BY: Virginia Campbell ENTERED: 02/17/25 14:06 SP TYPE: Surgical OTHR DR: Amberly Corona DO Tissues: A - Cyst Procedures: Hematoxylin and Eosin Stain Gross and Microscopic Level 4
[2025-02-17 13:28] VITALS: BP 125/68; PULSE 83; RESP 14; O2SAT 100
[2025-02-17 13:55] VITALS: BP 128/77; PULSE 81; O2SAT 100
[2025-02-17 14:15] VITALS: BP 127/74; PULSE 84
--- NOTE | 2025-02-17 14:41 | W.PM.PROC2 ---
Procedure Note - Detailed Date of Procedure 02/17/25 Pre-op Diagnosis Left Upper Back Cyst Post-op Diagnosis Same Procedure Performed excision 2.5 cm skin cyst of the back with no margin, 7 cm layered closure Surgeon Chacorta Sun MD Operations Administrator Ally Connell [place] Anesthesia General ( G IV S) and Local Indications patient had an infected cyst on her left upper back which was incised and drained in the office back in November. It has gone on to heal but has left a residual nodule of cyst. She is taken to the operating room now to excise this cyst from her back. Findings Cyst measured 2.5 cm in greatest dimension. Once the ellipse was excised, the wound defect was 7 cm in length. There was no evidence of active infection. Description of Procedure Patient was checked in the preoperative holding area. The site of the lesion and the anticipated elliptical excision were marked on the skin. She was then taken to surgery and placed in right lateral decubitus position. Prep and drape was carried out. Local anesthetic was infiltrated over the areas of anticipated excision. An elliptical incision was then made through the skin to the subcutaneous. cautery was used for hemostasis. The skin and the residual cyst were then excised. Cautery was again used for hemostasis. The cyst was measured and was 2.5 cm in greatest length. The wound was measured and was 7 cm in length. There was no margin of normal tissue taken with the cyst. Before closure, the subcutaneous was undermined on both sides of the wound to relax the tension on the closure. The wound was then closed With a deep layer of interrupted 3-0 Vicryl suture. The skin was then loosely approximated with subcuticular 3-0 and 4-0 Vicryl suture. Finally, the wound was closed with a running 4-0 Monocryl skin stitch. Wound was dressed with Exofin surgical adhesive. The patient was returned to a supine position, awakened, and taken to same-day surgery. Sponge needle counts were correct x2. Estimated Blood Loss -5 Drains No Packing No Pathology Yes ( Skin lesion, cyst, of the back) Complications None Condition Stable Disposition Same day [facility] Billing Surgery - Charge Forward: Surgery Billing (excision 2.5 cm skin cyst of the back with no margin, 7 cm layered closure)
== END 2025-02-17 14:22 | disposition home or self-care (01) ==
PROVIDERS: PCP Family Medicine; Visit Provider Surgery
PROC: (CPT 11403; principal; 2025-02-17 10:30)
DX: L72.0 Epidermal cyst (principal); E11.9 Type 2 diabetes mellitus without complications; E66.9 Obesity, unspecified; Z68.31 Body mass index [BMI] 31.0-31.9, adult
CPT/HCPCS: 11403; 12032; 82948; 88305; J0690; J2250; J2704; J3010; J7120

== ENCOUNTER 2025-03-09 13:33 | Outpatient (CLI) | payer OTHER, SELFPAY ==
--- NOTE | ~2025-03-09 | CT_ITS ---
EXAMINATION: CT abdomen wo con DATE: 03/09/2025 13:50 INDICATION: Abnormal blood chemistry levels TECHNIQUE: Computed tomography (CT) of the abdomen nonobstructive bowel gas pattern. No lymphadenopathy. No significant vascular abnormality. Spleen is enlarged measuring 13 cm. Was performed without intravenous contrast. The dose- length product was 322.61 mGy-cm. Automated exposure control and iterative reconstruction technique were employed. COMPARISON: 05/17/2000. FINDINGS: Multiple liver cysts, largest measuring 4.5 x 3.6 cm. The pancreas, adrenal glands and kidneys are unremarkable. Mild lumbar spondylosis. No acute osseous abnormality. Nonobstructive bowel gas pattern. No free air or free fluid. IMPRESSION: 1. Liver cysts. Reviewed, dictated and finalized at location O. IMPRESSION: 1. Liver cysts.
== END 2025-03-09 13:34 | disposition home or self-care (01) ==
PROVIDERS: PCP Family Medicine; Visit Provider Family Medicine
DX: R79.89 Other specified abnormal findings of blood chemistry (principal); K76.89 Other specified diseases of liver
CPT/HCPCS: 74150